=== PATIENT | female | born 1970 | race Caucasian/White ===

== ENCOUNTER → 2017-11-06 | Outpatient (CLI) | payer BC ==
[~2017-11-06] VITALS: Ht 162.6 cm; Wt 122.0 kg
[~2017-11-06] MED LIST: MOBIC15 MG PO; OXYCODONE HCL 55 MG PO; PHENTERMINE H37.5 M1 PO; PROTONIX40 M1 PO; ROXICODONE5 MG PO; XANAX 0.5 MG0.5 MG PO
--- NOTE | ~2017-11-06 | HPC ---
[facility] [place] [address] PAIN MANAGEMENT CONSULTATION Name: HARDEEP SANTIAGO Room #: REG [facility]..#: [id number] Admission: 11/06/17 Attend Phys: Layo Mckenna DO Discharge: Date of : 70 Report #: [id number] THIS REPORT FOR: //name// CC: Layo Lowery MD DATE OF SERVICE: 11/06/2017 REFERRING PHYSICIAN: Marilyn Lowery MD CHIEF COMPLAINT: Low back pain, right buttock and posterolateral thigh pain. HISTORY OF PRESENT ILLNESS: As you know, the patient is a 47-year-old female who has been referred to our service with ongoing low back and right lower extremity pain. She indicates pain is constant, aching, burning, shooting, sharp and stabbing, places current pain score 7/10, indicates pain is exacerbated with standing, sitting, walking, improves with oxycodone therapy, CBD oils apparently helps to some degree. She sought evaluation through her primary care physician, Dr. Marilyn Lowery who indicated the patient should be seen by pain management due to history of back surgery. She has been complaining of ongoing back pain for nearly 3 months. She is taking oxycodone for her pain as well as made some changes in her normal activities in hopes of improving symptoms. She has been referred to our clinic to discuss ongoing pain that has been present since 2001. She is denying any injury or trauma. Pain today is rated at 7/10, daily average at 7-8/10, worst pain has been 10+/10. PAST MEDICAL HISTORY: 1. Anemia. 2. Chronic stomach problems. 3. Emotional problems. 4. Degenerative joint disease. 5. Osteoarthritis. PAST SURGICAL HISTORY: 1. Appendectomy. 2. Lap band surgery. 3. Herniorrhaphy. 4. Repeat herniorrhaphy. 5. Back surgeries times 7, beginning 2012, continuing through mid 2012. SOCIAL HISTORY: The patient denies tobacco, alcohol, IV or illicit drug use. 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 She is working, not receiving workmen's compensation or is she trying to obtain disability benefits. She is not in litigation in regards to her pain. [facility] [address] [place] [address] PAIN MANAGEMENT CONSULTATION Name: JACKHARDEEP Room #: REG [facility].#: [id number] Admission: 11/06/17 Attend Phys: Layo Mckenna DO Discharge: Date of : 70 Report #: [id number] REVIEW OF SYSTEMS: Positive for weight gain, decrease in appetite, fatigue, weakness, headaches corrective eyewear, double vision, chronic sinus problems, rhinitis, sore throat with voice changes, shortness of breath with walking or lying flat, loss of appetite, bowel movement issues, constipation, rectal bleeding, peptic ulcer disease, nocturia, sexual difficulty, varicose veins, recurrent headaches, numbness and tingling sensations, memory loss or confusion, nervousness, depression, insomnia, heat and cold intolerance, slow to heal after cuts, bleeding and bruising tendencies and anemia. All other review of systems negative per 12-point review of systems other than those listed in history of present illness. PAIN IMPACT SCORE: 59/70 indicating severe, near complete interference of daily activities secondary to pain. ALLERGIES: MORPHINE, CODEINE, and LATEX. CURRENT MEDICATIONS: Oxycodone 5 mg 3 times a day, phentermine 37.5 mg once a day, Meloxicam 15 mg once a day, pantoprazole 40 mg once a day, and alprazolam 0.5 mg twice a day. IMAGING: No imaging available. OPIOID ABUSE POTENTIAL: Two indicating a low risk. PHYSICAL EXAMINATION: VITAL SIGNS: Blood pressure 153/99, pulse 102, respiratory rate 18 and unlabored, the patient is 91% on room air, height 5 feet 4 inches tall, weight 269 pounds, and BMI calculated 46.2. GENERAL: Well-developed, well-nourished, well-hydrated, severely morbidly obese 47-year-old female, appears her stated age. She is placing pain score today 7/10. HEENT: Normocephalic, atraumatic. Pupils are equal, round, and reactive to light. Extraocular muscles are intact. Sclerae are nonicteric without injection. NEUROLOGIC: Cranial nerves 2-12 are grossly intact. Speech is fluent. The patient deemed a fair historian. LUNGS: Clear. No wheeze, rhonchi, or rales. CARDIOVASCULAR: Regular. No appreciable gallop, no rub. ABDOMEN: Soft, severely obese, normoactive bowel sounds. EXTREMITIES: Show no clubbing, no cyanosis, and no edema. MUSCULOSKELETAL: Seated straight leg raising negative. Supine straight leg raising negative. Devonte's test negative. Modified Gaenslen's positive for axial low back pain. Severe restriction of motion secondary to multiple surgeries. There are well-healed surgical scars in the area. Ankle clonus negative. Babinski is negative. Muscle bulk and tone symmetrical in lower extremities. [facility] [address] [place] [address] PAIN MANAGEMENT CONSULTATION Name: HARDEEP SANTIAGO Room #: REG [facility]#: [id number] Admission: 11/06/17 Attend Phys: Layo Mckenna DO Discharge: Date of : 70 Report #: [id number] ASSESSMENT: 1. 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 3. Chronic back pain. 4. Opioid dependency. 5. Chronic intractable pain. PLAN: 1. The patient has been referred to our service by her primary care physician for evaluation. It does appear the patient is taking oxycodone without complication. She is taking no more than 3 oxycodone 5 mg a day and this is providing her benefit. Apparently, she was taking significantly higher number of medications from a dosing standpoint and has been weaned down to 5 mg 3 times a day. Due to concerns of the primary team about ongoing opioid therapy, she was referred to our clinic. Given the fact the patient had had 7 different lumbar spine surgeries, there are very few options she has available to treat ongoing symptoms. We discussed the following with the patient today. We discussed core strengthening and a significant effort at weight loss, this would be the cornerstone of treatment. The patient was advised that we would have to have the patient either managed medically by a professional weight loss physician or possibly looking towards bariatric intervention from a surgical standpoint. The patient's weight is contributing significantly to her ongoing back pain issues. Her BMI today 46 well above a female her height and age. She needs to make a concerted effort of making changes in diet and exercise programs. I do understand the patient has difficulty with some exercise issues, but this should not preclude her from reducing her caloric intake to begin a concerted effort at weight loss. We discussed medication management, we would be willing will continue oxycodone at 5 mg 3 times a day, assuming she is appropriate with use of the therapy. At this point, interventional treatments I do not think would be beneficial except for the possibility of a spinal cord stimulator. This could be helpful in alleviating symptoms the patient is experiencing and improve overall pain, she will consider this option. 2. I have agreed to provide the patient with oxycodone 5 mg dose 1 tab p.o. t.i.d., I have given the patient #90 tablets, no refills. We have signed an opioid contract with the patient today that indicates that she will be appropriate with medication, she will not overuse her medication, she will not have lost or stolen prescriptions and that she will submit to testing at any time we deem necessary. The patient to review the opioid contract today and signed in good jak, it was countersigned by myself and the witnessing nurse. 3. The patient will return to our clinic in one month. At that time, we will review the medication efficacy. We will also discuss point #1, the physical therapy and weight loss that will be necessary as well as point #3 in regards to the spinal cord stimulator. 4. The patient will be returning to our clinic in 1 month, [place] [address] PAIN MANAGEMENT CONSULTATION Name: HARDEEP SANTIAGO Room #: REG CLI M.Cruz#: [id number] Admission: 11/06/17 Attend Phys: Layo Mckenna DO Discharge: Date of : 70 Report #: [id number] apprised of her response to treatment. Again, we wish to thank you for the opportunity to see the patient in consultation. Once she is stable, we will be returning her care to your capable hands. Indicated guideline states that if the patient is not stable, they are to see pain management, adjustments to be made and then return to their PCP. <ELECTRONICALLY SIGNED> By: Layo Mckenna DO 11/20/17 0935 [id number] Layo Mckenna DO /nt
[2017-11-06 09:04] VITALS: BP 153/99
== END ==
LOC: PAIN 07:03
DX: M54.5 Low back pain (principal); G89.4 Chronic pain syndrome; F11.20 Opioid dependence, uncomplicated

== ENCOUNTER → 2018-01-08 | Outpatient (CLI) | payer BC ==
[~2018-01-08] VITALS: Ht 162.6 cm; Wt 115.1 kg
--- NOTE | ~2018-01-08 | HPC ---
[facility] [address] PAIN MANAGEMENT CONSULTATION Name: HARDEEP SANTIAGO Room #: REG [facility].#: [id number] Admission: 01/08/18 Attend Phys: Layo Mckenna DO Discharge: Date of : 70 Report #: [id number] THIS REPORT FOR: //name// CC: Layo Lowery MD DATE OF SERVICE: 01/08/2018 REFERRING PHYSICIAN: Marilyn Lowery MD CHIEF COMPLAINT: Low back pain, right buttock and posterolateral thigh pain. HISTORY OF PRESENT ILLNESS: As you know, the patient is a 47-year-old morbidly obese female who was referred to our service for low back pain, right buttock and posterolateral thigh pain. She also suffers from intermittent left hip pain. The patient was seen in our clinic per the request of her primary care team on 11/06/2017. At that point, we chose to reduce the patient's opioid medications to a more appropriate dosing regimen of 5 mg 3 times a day of oxycodone, this provides benefit without side effects. She has been continued on that medication, returning today stating that her pain is of no greater than 6/10, she states the combination of her new exercise program for which she is increasing her walking and some light weightlifting along with medications is improving pain. She requests refill on medications at current dosing. She states her pain is exacerbated with sitting, standing, walking, improves with medications, cold compresses and exercise program. She indicates that she continues to lose weight, she is now at 253.8 pounds down from 267 last month. She returns for refill on medications. ALLERGIES: MORPHINE, CODEINE, and LATEX. CURRENT MEDICATIONS: Oxycodone 5 mg every 8 hours p.r.n. for pain, phentermine 37.5 mg once a day, Meloxicam 15 mg once a day, pantoprazole 40 mg per day, and alprazolam 0.5 mg twice a day. SOCIAL HISTORY: The patient continues to work. 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 She is not receiving workmen's compensation. She does not participate in tobacco, alcohol or IV or illicit drug use. IMAGING: There is no new imaging available. PHYSICAL EXAMINATION: VITAL SIGNS: Blood pressure 150/78, pulse 91, respiratory rate 16 and unlabored, the patient is 100% on room air, height 5 feet 4 inches tall, weight 253.8 pounds, BMI calculated 43.5. GENERAL: Well-developed, well-nourished, well-hydrated, class [place] [address] PAIN MANAGEMENT CONSULTATION Name: JACKHARDEEP [facility] [id number] Admission: 01/08/18 Attend Phys: Layo Mckenna DO Discharge: Date of : 70 Report #: [id number] 47-year-old female, appearing stated age, placing current pain score at 6/10. HEENT: Normocephalic, atraumatic. Pupils are equal, round, and reactive to light. EXTREMITIES: Show no clubbing, no cyanosis, and no edema. MUSCULOSKELETAL: Seated straight leg raising negative. Supine straight leg raising mildly positive. Devonte's test negative. Modified Gaenslen's positive for axial back pain. Ankle clonus negative. Babinski is negative. ASSESSMENT: 1. Failed lumbar spine surgery. 2. Chronic low back pain. 3. Opioid dependency. 4. Chronic intractable pain. PLAN: 1. The patient returns today in followup visit indicating continued weight loss, increase exercise activity. She is down from 267 pounds to 253.8 pounds. We applauded the patient for the continued weight loss and participation in exercise activities, I believe this will be one of the major sources of pain improvement as she begins to lose greater amounts of weight. We have encouraged the patient to continue this activity and have offered the patient the opportunity to be referred to either a medically managed weight loss program or for more physical therapy training to lose weight more rapidly. At present, the patient feels she is doing well and wishes to continue current therapy, she is continuing to take phentermine provided by her PCP. 2. The patient was provided a refill prescription on oxycodone 5 mg dose 1 tab p.o. t.i.d., I have given the patient #90 tablets. She appears to be utilizing the medication appropriately. She states that the medication provides benefit without side effects. We recommend she continue the medication for the next month. 3. We will see the patient back in followup visit 30 days for the next prescription of oxycodone and to discuss other treatment options. <ELECTRONICALLY SIGNED> By: Layo Mckenna DO 01/09/18 0804 0835 [id number] Layo Mckenna DO /nt
[2018-01-08 08:10] VITALS: BP 150/78
== END ==
LOC: PAIN 01-01 06:38
DX: M54.5 Low back pain (principal); G89.4 Chronic pain syndrome; F11.20 Opioid dependence, uncomplicated

== ENCOUNTER → 2018-02-05 | Outpatient (CLI) | payer BC ==
[~2018-02-05] VITALS: Ht 162.6 cm; Wt 116.8 kg
[~2018-02-05] MED LIST changes: +ROXICODONE5 M2 PO
--- NOTE | ~2018-02-05 | HPC ---
[facility] [place] [address] PAIN MANAGEMENT CONSULTATION Name: HARDEEP SANTIAGO [id number] Admission: 02/05/18 Attend Phys: Layo Mckenna DO Discharge: Date of : 70 Report #: [id number] THIS REPORT FOR: //name// CC: Layo Lowery MD DATE OF SERVICE: 02/05/2018 REFERRING PHYSICIAN: Marilyn Lowery M.D. CHIEF COMPLAINT: Low back pain, right buttock and posterolateral thigh pain. HISTORY OF PRESENT ILLNESS: As you know, the patient is a morbidly obese 47-year-old female referred to our service for chronic low back pain, right buttock and posterolateral thigh pain. She states she suffers from intermittent left hip pain, likely due to her body habitus. She has been stabilized on a dose of oxycodone 5 mg 3 times a day, which is working well for pain control. The patient is reporting pain levels no greater than 6/10 and this is with increased activity. She does provide information today about recent changes in her menstruation for which she is following up with her PCP. She does not apparently at this time have an PEDIATRICS PHYSICIAN. The patient states she is having 2 menstrual periods per month or greater and this is causing greater and greater disability and that she is unable to participate in her activities of daily living. She is up 4 pounds from our visit 1 month ago. It is imperative that the patient began to lose weight as her symptoms are directly related to her excessive body size. This is contributing significantly to ongoing pain issues. Without weight loss, medication therapy is going to be met with failure. She needs to look into her gynecological issues as quickly as possible. ALLERGIES: MORPHINE, CODEINE and LATEX. CURRENT MEDICATIONS: Oxycodone 5 mg every 8 hours p.r.n. for pain, phentermine 37.5 mg once a day, meloxicam 15 mg per day, pantoprazole 40 mg per day and alprazolam 0.5 mg twice a day. SOCIAL HISTORY: The patient continues to work. 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 She is working, not receiving workmen's compensation nor is she trying to obtain disability benefits. Unaccompanied today. She denies tobacco, alcohol or IV or illicit drug use. IMAGING DATA: No new imaging available. PHYSICAL EXAMINATION: GENERAL: Well-developed, well-nourished, well-hydrated, class 3 morbidly obese 47-year-old female appearing stated age. She [place] [address] PAIN MANAGEMENT CONSULTATION Name: HARDEEP SANTIAGO Room #: REG [facility].#: [id number] Admission: 02/05/18 Attend Phys: Layo Mckenna DO Discharge: Date of : 70 Report #: [id number] . HEENT: Normocephalic and atraumatic. Pupils equal, round and reactive to light. Extraocular muscles are intact. Speech fluent. EXTREMITIES: Show no clubbing and no cyanosis. There is 1+ nonpitting lower extremity edema. MUSCULOSKELETAL: Seated straight leg raising negative. Supine straight leg raising mildly positive. Devonte's test is positive mildly on the left. Modified Gaenslen's positive for axial low back pain. Ankle clonus negative. Babinski is negative. ASSESSMENT: 1. Failed lumbar spine surgery. 2. Chronic low back pain. 3. Opioid dependency. 4. Morbid obesity. 5. Chronic intractable pain. PLAN: 1. The patient returns today in followup visit up 4 pounds from last month. We have discussed at length today with the patient her need to reduce her overall weight. This is contributing significantly to the patient's ongoing pain issues. The patient indicates that she has been unable to participate in daily activities, walking and exercise due to repeating menstrual issues. She has had 2-2-1/2 menstrual periods per month over the past couple of months. She states she is being evaluated by primary care but has not been seen by Gynecology. We recommend strongly a gynecology referral for the patient. We will defer to the primary team to provide this. I do feel that further evaluation will be necessary given the patient's age and the frequency of her cycles. This could potentially be a typical finding for this individual given her age of 47 and her morbid obesity, but there is also possibility pathology may exist and needs further evaluation. 2. The patient and I discussed at length the need for reduction in weight. We have discussed with the patient diet changes as well as exercise programs in the combination therein. We have offered the patient a referral to bariatric counseling with weight control via diet and exercise as well as a potential gastric surgery. The patient wishes to consider this option. She does not wish the referral at this point. 3. The patient was provided prescription of oxycodone 5 mg dose 1 tab p.o. t.i.d., not to be taken more than 3 times a day. She was given #90 tablets. This equals 22.5 mg morphine equivalents a day well under CDC's recommended guidelines. She has requested refill on the medication today. Given the improvement in symptoms she has noted with this medication, we recommend a 3-month prescription to be provided at this visit. 4. The patient was provided prescription of oxycodone 5 mg dose 1 tab p.o. t.i.d. I have given the patient #90 tablets and 2 refills to be released today, 4 weeks from today and 8 weeks from today, 3 months' worth of medication. [facility] [address] [place] [address] PAIN MANAGEMENT CONSULTATION Name: HARDEEP SANTIAGO SADAF Room #: REG [facility].#: [id number] Admission: 02/05/18 Attend Phys: Layo Mckenna DO Discharge: Date of : 70 Report #: [id number] 5. We will see the patient back in followup visit in 3 months. At that time, we are going to discuss weight loss programs that will be necessary as part of the treatment option. It is her weight that is contributing significantly to her ongoing low back issues. Without reduction in weight, she will not see improvement in symptoms. We will discuss this again at followup visit. By: [id number] Layo Mckenna DO /nt
[2018-02-05 08:02] VITALS: BP 156/101
== END ==
LOC: PAIN 06:34
DX: M54.5 Low back pain (principal); G89.4 Chronic pain syndrome; E66.01 Morbid (severe) obesity due to excess calories; F11.20 Opioid dependence, uncomplicated

== ENCOUNTER → 2018-05-14 | Outpatient (CLI) | payer BC ==
[~2018-05-14] VITALS: Ht 165.1 cm; Wt 119.3 kg
[~2018-05-14] MED LIST changes: +FERROUS GLUCON324 M3 PO
--- NOTE | ~2018-05-14 | HPC ---
[facility] [place] [address] PAIN MANAGEMENT CONSULTATION Name: HARDEEP SANTIAGO [id number] Admission: 05/14/18 Attend Phys: Layo Mckenna DO Discharge: Date of : 70 Report #: [id number] THIS REPORT FOR: //name// CC: Layo Lowery MD DATE OF SERVICE: 05/14/2018 REFERRING PHYSICIAN: Marilyn Lowery M.D. CHIEF COMPLAINT: Low back pain, right buttock and posterolateral thigh pain. HISTORY OF PRESENT ILLNESS: As you know, the patient is morbidly obese 47-year-old female referred to our service for chronic low back pain, right buttock and posterolateral thigh pain. She suffers from intermittent left hip pain as well. This is likely due to osteoarthritic changes and her body habitus. She returns today requesting a refill of oxycodone 5 mg 3 times a day. She does provide information that she is having more difficulty with constipation. She believes this is a combination of the oxycodone along with iron supplementation. She states that her bowel movements now are every 4-10 days, which is quite concerning. She indicates pain level today of around 6/10. She states that her pain is aching and sore in sensation, exacerbated with standing, walking and sitting, improves with medications, heat and cold compresses. She is also describing menstrual cycles happening every 2 weeks. She is quite concerned about the excessive bleeding at both these issues, but has yet to undergo full workup by Gynecology. She returns to discuss these issues with us today. ALLERGIES: MORPHINE, CODEINE AND LATEX. CURRENT MEDICATIONS: Oxycodone 5 mg every 8 hours p.r.n. for pain, phentermine 37.5 mg once a day, meloxicam 15 mg once a day, pantoprazole 40 mg per day, alprazolam 0.5 mg twice a day and iron supplementation daily. SOCIAL HISTORY: The patient continues to work. 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 She is working, not receiving workmen's compensation nor is she trying to obtain disability benefits. She is unaccompanied today. IMAGING: No new imaging available. PHYSICAL EXAMINATION: VITAL SIGNS: Blood pressure 142/90, pulse 103, respiratory rate 16 and unlabored. The patient is 100% on room air. Height 5 feet 5 inches tall, weight 263.0 pounds and BMI calculated at 43.8. GENERAL: Well-developed, well-nourished, well-hydrated, class 3, [place] [address] PAIN MANAGEMENT CONSULTATION Name: HARDEEP SANTIAGO Room #: REG [facility].#: [id number] Admission: 05/14/18 Attend Phys: Layo Mckenna DO Discharge: Date of : 70 Report #: [id number] 47-year-old female appearing her stated age. She is placing pain score around 6/10. HEENT: Normocephalic, atraumatic. Pupils equal, round and reactive to light. Extraocular muscles are intact. Sclerae nonicteric, without injection. EXTREMITIES: Show no clubbing, no cyanosis. There is 1+ lower extremity nonpitting edema. MUSCULOSKELETAL: Seated straight leg raising negative. Supine straight leg raising remains mildly positive. Devonte's test is positive left, negative right. Modified Gaenslen's is positive for axial low back pain. Ankle clonus negative. Babinski is negative. The patient has to utilize arms of the chairs to rise from a seated position. Pain is elicited with this maneuver. ASSESSMENT: 1. Failed lumbar spine surgery. 2. Chronic low back pain. 3. Opioid dependency. 4. Class 3 morbid obesity. 5. Menorrhagia. 6. Chronic intractable pain. 7. Complicated medication management. PLAN: 1. The patient has returned today in followup visit discussing concerns of multiple issues. We addressed each of those issues as much as we could today. We discussed constipation issues secondary to opioids and iron supplementation that in conjunction with lack of activities from a physical standpoint. We discussed ongoing gynecologic issues with excessive bleeding that occurs twice a month as well as ongoing back issues, status post failed lumbar spine surgery. The following was discussed with the patient today. 2. We discussed the continuation of opioid medication for which she is taking oxycodone 5 mg 3 times a day, a total of 15 mg oxycodone equating to approximately 25 morphine equivalents a day. This level of medications is well below the CDC's recommended guidelines of less than 90 morphine equivalents a day, but may be contributing significantly to the patient's ongoing constipation issues. The patient states that she would not be able to go about her activities of daily living without this medication. We cautioned the patient that she may be exacerbating her constipation with the opioids. We have given her some suggestions for lyzw-akq-bwhtfmr medications to assist with bowel regimen and have indicated that if she wished to come off the medication for approximately a week, she could determine if the oxycodone is the source of the patient's ongoing constipation issues. This is probably compounded by her iron supplementation, both of which show significant constipation issues as side effects. If she wishes to reduce the oxycodone, she would be able to determine how much of her constipation is exacerbated by that medication. 3. The patient was provided prescription of oxycodone 5 mg dose 1 tab p.o. t.i.d. I have given the patient #90, releases of today, 4 weeks from today, [address] [address] PAIN MANAGEMENT CONSULTATION Name: HARDEEP SANTIAGO Room #: REG [facility].#: [id number] Admission: 05/14/18 Attend Phys: Layo Mckenna DO Discharge: Date of : 70 Report #: [id number] weeks from today, 3 months' worth of medication. The patient was advised to take the medication as directed. She is not to call for early refills nor is she to take more than 3 tablets per day. 4. We reviewed the fact that opiate medications are being used to provide analgesia adequate to support activities of daily living, not attempting to achieve a specific pain score on the 0-10 Visual Analog Scale. The current opiate medications are providing sufficient analgesia to allow the patient to participate in activities of daily living. The patient is not exhibiting any aberrant behavior suggestive of drug diversion. The patient is not having any adverse reactions to medications. The patient is not suffering from daytime somnolence or mental acuity changes. The patient is managing opiate-induced constipation with appropriate sljy-uli-klhtuya agents and dietary considerations. The patient was counseled on concern for caution with operating a motor vehicle while using opiate medications. A physical exam was performed and the patient's functional status was evaluated. All patients with back pain were advised against the bed rest greater than 4 days and were advised to return to normal activities. Pain score assessment was noted and the treatment plan was reviewed with the patient. All current medications, both prescribed and OTC were reviewed and reconciled on the electronic medical record. Tobacco screening was accomplished and smoking cessation was advised when indicated. BMI was noted and diet/exercise modification was recommended for all patients following outside normal parameters. I reviewed with the patient today their responsibilities to safeguard prescription medications, reviewed their responsibility to utilize medications only as prescribed by the physician. They are to seek and receive pain medications only from 1 physician group ( [facility]). They are to use 1 pharmacy and keep the clinic informed if they change pharmacies. Their responsibilities include making followup visits in a timely fashion and to avoid abrupt discontinuation of medication usage. Their responsibilities further include bringing their medications (bottles from the pharmacy with residual pills) to the visit for possible confirmation of pill counts and the patient understands it is their responsibility to submit to random drug screens to ensure both that the medications prescribed are present, and that no other controlled substances are present. All prescriptions provided today were generated electronically. 5. The patient and I discussed at length today ongoing issues with fairly significant menstrual issues. She now is indicating that she is having her period twice a month. This in our estimation is not appropriate. She states she has excessive bleeding at each presentation and I believe this needs to be worked up further. We have advised the patient to look into gynecologic evaluation at last visit, given her family history of leiomyosarcoma. I recommended strongly the patient look into this issue as her lqtzx-s-otjfg menstrual periods do not correlate with premenopausal-type symptoms. In fact, [address] [address] PAIN MANAGEMENT CONSULTATION Name: JACKHARDEEP Room #: REG [facility] Joseph#: [id number] Admission: 05/14/18 Attend Phys: Layo Mckenna DO Discharge: Date of : 70 Report #: [id number] premenopausal symptoms are usually fairly erratic and irregular. They tend to be ever extending in their presentations, becoming less and less frequent. In this case, the patient's symptoms remain consistent every 2 weeks with excessive bleeding that I believe needs further workup. 6. The patient and I discussed at length the constipation issues. We did give the patient suggestions of uusg-vnp-idcujgy medications she can trial. We also recommend increasing physical activity. This will help the bowels work more efficiently, without the reduction of the confounding medication; a change in her diet and increasing activity. It will be difficult for the patient to maintain good and sufficient bowel regimen. We recommend strongly she make some adjustments in her diet, reduce offending agents if possible such as the iron and opioids, depending on which is the most problematic and beginning a physical activity program to lose weight, but also help with bowel function. 7. We will see the patient back in followup visit in 3 months to adjust medications as necessary. <ELECTRONICALLY SIGNED> By: Layo Mckenna DO 05/15/18 0821 [id number] Layo Mckenna DO /nt
[2018-05-14 08:24] VITALS: BP 142/90
== END ==
LOC: PAIN 06:53
DX: M54.5 Low back pain (principal); F11.20 Opioid dependence, uncomplicated; N92.0 Excessive and frequent menstruation with regular cycle; G89.4 Chronic pain syndrome; E66.01 Morbid (severe) obesity due to excess calories; Z79.899 Other long term (current) drug therapy

== ENCOUNTER → 2018-08-07 | Outpatient (CLI) | payer BC ==
[~2018-08-07] VITALS: Ht 165.1 cm; Wt 121.1 kg
[~2018-08-07] MED LIST changes: +SAXENDA3 MG/0.5 M SUBQ
[2018-08-07 08:13] VITALS: BP 157/74
--- NOTE | 2018-08-07 08:16 | NUR ---
Pain Clinic Assessment: 1. History of Osteoarthritis: YES History of Rheumatoid Arthritis: NO 2. Height: 5 ft. 5 in. 165.1 cm. Weight: 267.0 lb. oz. 121.111 kg. Patient's BMI: 44.4 3. Vital Signs: BP: 157/74 Pulse: 106 Resp: 18 Temp: 02 Sat: 99 ECG Mon: 4. Pain Intensity: 7 5. Fall Risk: Dizziness: N Needs help standing or walking: N Fallen in the last 3 months: N Fall risk comments: 6. Patient on Blood Thinner: None 7. History of Hypertension: N 8. Opioid Therapy greater than 6 weeks: Y Opiate Contract Signed: 11/06/17 9. Risk Assessment Tool Provided: 2 LOW 10. Functional Assessment Tool: 11. Recreational Drug Use: Never Drug Type: Tobacco Use: Never Smoker Tobacco Type: Amount or Packs/day: How Many Years: Alcohol Use: No Frequency: Quant:
--- NOTE | 2018-08-08 07:54 | HPC ---
[facility] [place] [address] PAIN MANAGEMENT CONSULTATION Name: HARDEEP SANTIAGO Room #: REG [facility].#: [id number] Admission: 08/07/18 Attend Phys: Hina Wilkinson Discharge: Date of : 70 Report #: [id number] THIS REPORT FOR: //name// CC: Hina Wilkinson Marilyn Lowery DATE OF SERVICE: 08/07/2018 CHIEF COMPLAINT: Low back pain, right buttock and posterior lateral thigh pain. HISTORY OF PRESENT ILLNESS: This is a 48-year-old morbidly obese female that returns to the pain clinic today for her chronic low back pain and right leg pain for a refill of her current pain medications. She tells me today that her pain score is a 7/10, mostly in her back but also does complain of some right shoulder and left foot pain. She tells me that the oxycodone is helpful in relieving some of her pain, but also has been having continued vaginal bleeding, uterine cramps and tells us that this is also causing her to have back pain. The patient tells me her pain is worse with her menstrual cycle and her medications are helpful as well as heat. The patient would like a refill of her medications today. I spoke with the patient and she is hopeful for an increase of her medications. ALLERGIES: BEES, MORPHINE, CODEINE AND LATEX. CURRENT LIST OF MEDICATIONS: Saxenda subQ daily, oxycodone 5 mg every 8 hours, iron 324 mg daily, phentermine 37.5 mg daily, meloxicam 15 mg p.r.n., Protonix 40 mg daily, Xanax 0.5 mg twice a day, MiraLax daily. PQRS: 1. Has a history of osteoarthritis in her back. Denies rheumatoid arthritis. 2. Height is 5 feet 5 inches, weight is 267 pounds, BMI is 44.4. 3. Vital signs: Blood pressure 157/74, pulse is 106, respirations 18, oxygen sat is 99%. 4. Pain score of 7. 5. Fall risk. Denies dizziness, does not need help walking or standing, has not fallen in the last 3 months. 6. The patient is not on any blood thinners and denies hypertension medications. 7. Opioid therapy is greater than 6 weeks; therefore, an opioid signed contract is on the chart. 8. Her risk assessment tool is low. Her functional assessment is 62/70. 9. Recreational drug use, the patient denies. She is not a smoker and does not drink alcohol. 10. We did check prescription monitoring systems and the patient is filling appropriately with her medications and is doing a few days for her oxycodone. There is not a urine drug screen on the chart. Therefore, we will collect a [facility] [address] [place] [address] PAIN MANAGEMENT CONSULTATION Name: JACKHARDEEP SADAF Room #: REG CL Opal#: [id number] Admission: 08/07/18 Attend Phys: Hina Wilkinson Discharge: Date of : 70 Report #: [id number] buccal swab today on the patient. PHYSICAL EXAMINATION: GENERAL: Well-developed, well-nourished, well-hydrated, class 3, morbidly obese 48-year-old female, appears her stated age, placing her pain score around 7/10. HEENT: Normocephalic, atraumatic. Pupils equal, round and reactive to light. Extraocular muscles are intact. EXTREMITIES: No clubbing, no cyanosis. Slight edema in her lower extremities. MUSCULOSKELETAL: The patient complains of low back pain. The patient does utilize the arms of the chairs to rise from seated to standing position, this does cause pain. The patient walks with an antalgic gait. ASSESSMENT: 1. Failed lumbar spine surgery. 2. Chronic low back pain. 3. Opioid dependency. 4. Class 3 morbid obesity. 5. Menorrhagia. 6. Chronic intractable pain. 7. Chronic complicated medical management under terms of written opioid agreement. We reviewed the fact that opiate medications are being used to provide analgesia adequate to support activities of daily living, not attempting to achieve a specific pain score on the 0-10 Visual Analog Scale. The current opiate medications are providing sufficient analgesia to allow the patient to participate in activities of daily living. The patient is not exhibiting any aberrant behavior suggestive of drug diversion. The patient is not having any adverse reactions to medications. The patient is not suffering from daytime somnolence or mental acuity changes. The patient is managing opiate-induced constipation with appropriate djmo-wbx-ektlapz agents and dietary considerations. The patient was counseled on concern for caution with operating a motor vehicle while using opiate medications. A physical exam was performed and the patient's functional status was evaluated. All patients with back pain were advised against the bed rest greater than 4 days and were advised to return to normal activities. Pain score assessment was noted and the treatment plan was reviewed with the patient. All current medications, both prescribed and OTC were reviewed and reconciled on the electronic medical record. Tobacco screening was accomplished and smoking cessation was advised when indicated. BMI was noted and diet/exercise modification was recommended for all patients following outside normal parameters. I reviewed with the patient today their responsibilities to safeguard prescription medications, reviewed their responsibility to utilize medications [address] [address] PAIN MANAGEMENT CONSULTATION Name: HARDEEP SANTIAGO Room #: REG [facility]#: [id number] Admission: 08/07/18 Attend Phys: Hina Wilkinson Discharge: Date of : 70 Report #: [id number] only as prescribed by the physician. They are to seek and receive pain medications only from 1 physician group ( [facility]). They are to use 1 pharmacy and keep the clinic informed if they change pharmacies. Their responsibilities include making followup visits in a timely fashion and to avoid abrupt discontinuation of medication usage. Their responsibilities further include bringing their medications (bottles from the pharmacy with residual pills) to the visit for possible confirmation of pill counts and the patient understands it is their responsibility to submit to random drug screens to ensure both that the medications prescribed are present, and that no other controlled substances are present. All prescriptions provided today were generated electronically. PLAN: 1. The patient returns to the pain clinic today for followup discussion regarding medication management. The patient wished to increase her pain medicines telling me that she has increased back pain. I questioned the patient regarding her last visit if she had seen a inspector of dredging regarding her continued menstrual cramping and periods, the patient tells me no. She says that she is having severe cramps today with increased back pain. I questioned her regarding taking her meloxicam. She tells me that she does not take that, did not think that that would help her periods. I did stress to her that nonsteroidals are good for menstrual pains. I encouraged her strongly to seek a inspector of dredging to rule out any issues, cancerous issues, fibroid issues, etc. regarding her continual menstrual bleeding. The patient tells me that she has had many doctors' appointments and was unable to do that. I again strongly encouraged her to make an appointment as soon as possible. We encouraged her to do this 3 months ago. She tells me she is seeing her primary next week. I encouraged her at least talk to her about it, maybe she can order some tests for the patient. The patient is agreeable with this. 2. We discussed her continuation of opioid medications. She is taking oxycodone 5 mg 3 times a day. This is approximately 25 morphine mEq a day, which has been helping in controlling some of the patient's low back pain. I told her we will not be increasing this medication today. I encouraged her to take her meloxicam as previously discussed for her back pain and not narcotics. The patient has told me that she has been taking MiraLax and slow movement tea that has helped her constipation and has not been having a problem with that any longer as long as she takes the medications refills. 3. Refills on the medication today of oxycodone 5 mg, #90, release today 4 week and 8 week were given to the patient as well as a buccal drug screen. The patient will return in 3 months' time. At that time, requested that she have her gynecological visit done by that. The patient is agreeable with this plan of care. The patient seen in collaboration with Dr. Layo Mckenna. <ELECTRONICALLY SIGNED> By: Hina Wilkinson 08/08/18 [id number] Hina Wilkinson /rafael
== END ==
LOC: PAIN 07:51
DX: M54.5 Low back pain (principal); G89.4 Chronic pain syndrome; F11.20 Opioid dependence, uncomplicated; N92.0 Excessive and frequent menstruation with regular cycle; E66.01 Morbid (severe) obesity due to excess calories; Z68.41 Body mass index [BMI] 40.0-44.9, adult; Z79.899 Other long term (current) drug therapy

== ENCOUNTER → 2018-11-13 | Outpatient (CLI) | payer BC ==
[~2018-11-13] VITALS: Ht 165.1 cm; Wt 127.7 kg
[~2018-11-13] MED LIST changes: +CLARITIN10 MG PO; +DIFLUCAN150 MG PO
[2018-11-13 08:18] VITALS: BP 156/98
--- NOTE | 2018-11-13 08:28 | NUR ---
Pain Clinic Assessment: 1. History of Osteoarthritis: LEFT FOOT LEFT ANKLE SPINE History of Rheumatoid Arthritis: NO 2. Height: 5 ft. 5 in. 165.1 cm. Weight: 281.6 lb. oz. 127.733 kg. Patient's BMI: 46.9 3. Vital Signs: BP: 156/98 Pulse: 96 Resp: 16 Temp: 02 Sat: 100 ECG Mon: 4. Pain Intensity: 6-7,TODAY/AVG 5. Fall Risk: Dizziness: N Needs help standing or walking: N Fallen in the last 3 months: N Fall risk comments: 6. Patient on Blood Thinner: None 7. History of Hypertension: N 8. Opioid Therapy greater than 6 weeks: Y Opiate Contract Signed: 11/06/17 9. Risk Assessment Tool Provided: 2 LOW 10. Functional Assessment Tool: 11. Recreational Drug Use: Never Drug Type: Tobacco Use: Never Smoker Tobacco Type: Amount or Packs/day: How Many Years: Alcohol Use: No Frequency: Quant:
--- NOTE | 2018-11-19 07:42 | HPC ---
[facility] [place] [address] PAIN MANAGEMENT CONSULTATION Name: HARDEEP SANTIAGO [id number] Admission: 11/13/18 ������������������ Attend Phys: Layo Mckenna DO Discharge: ������������������ Date of : 70 Report #: [id number] THIS REPORT FOR: //name// CC: Layo Lowery MD DATE OF SERVICE: 11/13/2018 CHIEF COMPLAINT: Low back pain, right buttock and posterolateral thigh pain. HISTORY OF PRESENT ILLNESS: As you know, the patient is a class 3 morbidly obese 48-year-old female who returns today in followup visit with continued low back pain, right lower extremity pain with paresthesias. The patient states that she has gained weight of recent due to increasing depression and weather changes. She indicates pain in the back has intensified with this weight gain. She returns today in followup visit requesting refill of medications. She denies side effects to medication at this juncture. We have had discussions in the past with the patient in regards to controlling her weight as this is the major contributor to the patient's ongoing axial back pain and lower extremity symptoms. We also discussed the fact that long-term opioid management would not be possible given the political climate with opioids. She returns today stating that she is trying to get back into physical activity, trying to lose the weight, and is trying to reduce her reliance on medications, though this has been ineffective so far. She returns today requesting refill of medications at current dosing understanding ultimately these medications will need to be further adjusted. ALLERGIES: MORPHINE, CODEINE, LATEX. CURRENT MEDICATIONS: Claritin 10 mg once a day, Diflucan 150 mg p.r.n. yeast infections, oxycodone 5 mg 3 times a day p.r.n., Saxenda 3 mg/0.5 mL injectable per day, ferrous gluconate 324 mg once a day, phentermine 37.5 mg once a day, meloxicam 15 mg once a day, pantoprazole 40 mg once a day, alprazolam 0.5 mg b.i.d. p.r.n. SOCIAL HISTORY: The patient denies tobacco, alcohol, IV or illicit drug use. She is working, not receiving workmen's compensation, unaccompanied today. IMAGING: No new imaging available. PHYSICAL EXAMINATION: VITAL SIGNS: Blood pressure 156/98, pulse 96, respiratory rate 16 and unlabored. The patient is 100% on room air. Height 5 feet 5 inches tall, weight 281.6 pounds, BMI calculated 46.9. GENERAL: Well-developed, well-nourished, well-hydrated, class [place] [address] PAIN MANAGEMENT CONSULTATION Name: HARDEEP SANTIAGO Room #: REG CLI [facility].#: [id number] Admission: 11/13/18 ������������������ Attend Phys: Layo Mckenna DO Discharge: ������������������ Date of : 70 Report #: [id number] 48-year-old female appearing her stated age, placing current pain score around 6-7/10. HEENT: Normocephalic, atraumatic. Pupils equal, round, reactive to light. Extraocular muscles are intact. EXTREMITIES: Show no clubbing, no cyanosis, and no edema. MUSCULOSKELETAL: Lower extremity strength is symmetrical, deconditioning noted bilaterally. Strength is rated at 5/5. Muscle bulk is equal and symmetrical in comparing left lower extremity to right. Seated straight leg raising negative. Supine straight leg raising negative. Devonte's test negative. Modified Gaenslen's positive for axial low back pain. Well-healed surgical scars over the lumbar spine. There is palpatory tenderness over the paraspinal musculature. No spinous process tenderness. ASSESSMENT: 1. Failed lumbar spine surgery. 2. Class 3 morbid obesity. 3. Chronic low back pain. 4. Opioid dependency. 5. Complicated medication management. 6. Chronic intractable pain. PLAN: 1. The patient returns today in followup visit where we have discussed at length her need to adjust her weight. I understand that she has had a lap band procedure in the past and had lost a significant amount of weight, down to nearly 170 pounds. Apparently, they chose to remove the saline from the lap band and once this was completed, the port itself moved and is no longer useful. Unfortunately, only alternative the patient has at this point is to look towards a full gastric bypass and she wishes to avoid this if at all possible. We discussed making adjustments in her diet, also starting an exercise program. We recommend aqua therapy initially and water based exercise program, as she begins to lose weight and can bear more weight on a consistent basis, then move towards a more land based exercise program. This in conjunction with appropriate diet changes could significantly improve the patient's weight, which will secondarily improve the patient's axial back pain. The patient and I had at least a 20-minute conversation about this today, I recommend she follow up with her PCP for referrals for bariatric consultations. 2. The patient and I did discuss the opioid medication she is currently on. She is taking oxycodone 5 mg 3 times a day. She is stating no side effects to medication. She states without the medication her pain would be significantly more intense. She will remain on this medication at this time with the understanding that eventually these medications will be slowly phased out of the [place] market as they are not indicated for chronic axial back pain issues and most insurances are no longer going to be covering this medication. We will continue the patient on the medication at this time, but we will adjust once conditions [facility] [address] [place] [address] PAIN MANAGEMENT CONSULTATION Name: JACKHARDEEP [id number] Admission: 11/13/18 ������������������ Attend Phys: Layo Mckenna DO Discharge: ������������������ Date of : 70 Report #: [id number] require. We reviewed the fact that opiate medications are being used to provide analgesia adequate to support activities of daily living, not attempting to achieve a specific pain score on the 0-10 Visual Analog Scale. The current opiate medications are providing sufficient analgesia to allow the patient to participate in activities of daily living. The patient is not exhibiting any aberrant behavior suggestive of drug diversion. The patient is not having any adverse reactions to medications. The patient is not suffering from daytime somnolence or mental acuity changes. The patient is managing opiate-induced constipation with appropriate [id number]-sesqntf agents and dietary considerations. The patient was counseled on concern for caution with operating a motor vehicle while using opiate medications. A physical exam was performed and the patient's functional status was evaluated. All patients with back pain were advised against the bed rest greater than 4 days and were advised to return to normal activities. Pain score assessment was noted and the treatment plan was reviewed with the patient. All current medications, both prescribed and OTC were reviewed and reconciled on the electronic medical record. Tobacco screening was accomplished and smoking cessation was advised when indicated. BMI was noted and diet/exercise modification was recommended for all patients following outside normal parameters. I reviewed with the patient today their responsibilities to safeguard prescription medications, reviewed their responsibility to utilize medications only as prescribed by the physician. They are to seek and receive pain medications only from 1 physician group ( [facility]). They are to use 1 pharmacy and keep the clinic informed if they change pharmacies. Their responsibilities include making followup visits in a timely fashion and to avoid abrupt discontinuation of medication usage. Their responsibilities further include bringing their medications (bottles from the pharmacy with residual pills) to the visit for possible confirmation of pill counts and the patient understands it is their responsibility to submit to random drug screens to ensure both that the medications prescribed are present, and that no other controlled substances are present. All prescriptions provided today were generated electronically. 3. The patient was provided prescription of oxycodone 5 mg dose 1 tab p.o. t.i.d., given the patient #90 tablets, releasing today, 4 weeks from today, 8 weeks from today, 3 months' worth of medication. We will see the patient back in followup visit for refill on medications assuming these will be able to be continued. 4. We will see the patient back in followup visit in 3 months. Hopefully, by [address] [address] PAIN MANAGEMENT CONSULTATION Name: HARDEEP SANTIAGO Room #: REG [facility] Joseph#: [id number] Admission: 11/13/18 ������������������ Attend Phys: Layo Mckenna DO Discharge: ������������������ Date of : 70 Report #: [id number] that time, she will have had the discussion with her PCP in regards to Bariatric consultation and Nutrition consultations. ��������������������������������������������� <ELECTRONICALLY SIGNED> ���������������������������������������� By: Layo Mckenna DO ��������������������������������������������� 11/19/18 0742 [id number] Layo Mckenna DO /nt
== END ==
LOC: PAIN 07:04
DX: M96.1 Postlaminectomy syndrome, not elsewhere classified (principal); G89.4 Chronic pain syndrome; F11.20 Opioid dependence, uncomplicated; M54.5 Low back pain; E66.01 Morbid (severe) obesity due to excess calories; Z88.8 Allergy status to other drugs, medicaments and biological substances; Z79.899 Other long term (current) drug therapy

== ENCOUNTER → 2019-05-14 | Outpatient (CLI) | payer BC ==
[~2019-05-14] VITALS: Ht 162.6 cm; Wt 132.5 kg
[~2019-05-14] MED LIST changes: +MUPIROCIN22 GM TOP; +OZEMPIC0.25 MG/0. SUBQ; +OZEMPIC1 MG/0.75 SUBQ; +TEMOVATE30 GM TOP
[2019-05-14 08:11] VITALS: BP 136/80
--- NOTE | 2019-05-14 08:20 | NUR ---
Pain Clinic Assessment: 1. History of Osteoarthritis: LEFT FOOT LEFT ANKLE SPINE History of Rheumatoid Arthritis: NO 2. Height: 5 ft. 4 in. 162.6 cm. Weight: 292.0 lb. oz. 132.451 kg. Patient's BMI: 50.1 3. Vital Signs: BP: 136/80 Pulse: 107 Resp: 16 Temp: 02 Sat: 97 ECG Mon: 4. Pain Intensity: 6-7 5. Fall Risk: Dizziness: N Needs help standing or walking: N Fallen in the last 3 months: N Fall risk comments: 6. Patient on Blood Thinner: None 7. History of Hypertension: N 8. Opioid Therapy greater than 6 weeks: Y Opiate Contract Signed: 11/06/17 9. Risk Assessment Tool Provided: MOD-7 10. Functional Assessment Tool: 11. Recreational Drug Use: Never Drug Type: Tobacco Use: Never Smoker Tobacco Type: Amount or Packs/day: How Many Years: Alcohol Use: No Frequency: Quant:
--- NOTE | 2019-05-27 07:57 | HPC ---
[facility] [place] [address] [address] PAIN MANAGEMENT CONSULTATION Name: HARDEEP SANTIAGO [facility]: [facility] [id number] Admission: 05/14/19 Attend Phys: Layo Mckenna DO Discharge: Date of : 70 Report #: [id number] THIS REPORT FOR: //name// CC: Layo Lowery HISTORY OF PRESENT ILLNESS: As you know patient is a 48-year-old class 3 morbidly obese female returning in followup visit for medication management. We are treating the lumbar radiculopathy involving low back and right lower extremity with paresthesias. The patient returns requesting refill on medications. Unfortunately, over the past 3 months since we have seen the patient, she has begun to increase weight, which has caused an exacerbation of symptoms. She is now placing pain at a level of 6-7/10. She returns today stating that she has suffered no new injury, no new trauma or any changes in medical issue since our last visit. She returns requesting refill on therapy at this time. ALLERGIES: MORPHINE, CODEINE, AND LATEX. CURRENT MEDICATIONS: Claritin, Diflucan p.r.n., oxycodone, Saxenda, ferrous gluconate, phentermine, meloxicam, pantoprazole, alprazolam. SOCIAL HISTORY: The patient denies tobacco, alcohol, IV or illicit drug use. She is working, not receiving workmen's compensation, unaccompanied today. IMAGING: No new imaging available. PHYSICAL EXAMINATION: VITAL SIGNS: Blood pressure 136/80, pulse is 107, respiratory rate 16 and unlabored. The patient is 97% on room air. Height 5 feet 4 inches tall, weight 292 pounds, BMI now calculated 50.1. GENERAL: Well-developed, well-nourished, well-hydrated class 3 severely morbidly obese 48-year-old female appearing her stated age, placing current pain score 6-7/10. HEENT: Normocephalic, atraumatic. Pupils equal, round, reactive to light. Extraocular muscles are intact. Sclerae nonicteric without injection. NEUROLOGIC: Cranial nerves 2-12 grossly intact. Speech is fluent. The patient deemed a good historian. EXTREMITIES: Show no clubbing, no cyanosis, no edema. MUSCULOSKELETAL: Lower extremity strength is equal and symmetrical, though deconditioning is noted again bilaterally. Strength rated at 5/5 against resistance. Muscle bulk is equal and symmetrical in lower extremities when comparing left to right. Devonte's test negative. Modified Gaenslen's positive for axial low back pain. Well-healed surgical scars over the lumbar spine. Seated straight leg raising negative. Supine straight leg raising negative. Gait antalgic. [address] [address] PAIN MANAGEMENT CONSULTATION Name: HARDEEP SANTIAGO [id number] Admission: 05/14/19 Attend Phys: Layo Mckenna DO Discharge: Date of : 70 Report #: [id number] ASSESSMENT: 1. Failed lumbar spine surgery. 2. Class 3 morbid obesity. 3. Chronic low back pain. 4. Opioid dependency. 5. Complicated medication management. 6. Chronic intractable pain. PLAN: 1. The patient returns today in followup visit requesting refill on medications. Unfortunately, we have seen an increase in the patient's weight since our last visit. BMI at last visit was calculated at 47.2, BMI is now calculated at 50.1. This excessive weight is going to be quite detrimental to the patient leading to ongoing pain issues that will not be resolved by medication management. If the patient does not address this weight issue quickly, this will continue to be a problem for the patient in long-term. Unfortunately, opioid medications and interventional treatments will not be able to remain an effective treatment option given her increasing weight. It is imperative that the patient do something about her weight quickly including a discussion with bariatric surgery. If the patient is unable to control her weight with diet and exercise, more aggressive treatment option will be necessary or we will have continued issues of ongoing pain and further destruction of the joints of the lower extremities. The patient has started a new medication with her PCP, but continues to have a poor diet. She will need to adjust her diet. We recommend at least a consultation with Nutrition would be recommended. We will defer to the primary team for treatment for her class 3 morbid obesity with increasing weight over the past 3 months. We reviewed the fact that opiate medications are being used to provide analgesia adequate to support activities of daily living, not attempting to achieve a specific pain score on the 0-10 Visual Analog Scale. The current opiate medications are providing sufficient analgesia to allow the patient to participate in activities of daily living. The patient is not exhibiting any aberrant behavior suggestive of drug diversion. The patient is not having any adverse reactions to medications. The patient is not suffering from daytime somnolence or mental acuity changes. The patient is managing opiate-induced constipation with appropriate slav-utt-wmtugzx agents and dietary considerations. The patient was counseled on concern for caution with operating a motor vehicle while using opiate medications. A physical exam was performed and the patient's functional status was evaluated. All patients with back pain were advised against the bed rest greater than 4 days and were advised to return to normal activities. Pain score assessment was noted and the treatment plan was reviewed with the patient. All current medications, both prescribed and OTC were reviewed and reconciled on the electronic medical record. Tobacco screening was accomplished and smoking [facility] [address] [place] [address] PAIN MANAGEMENT CONSULTATION Name: HARDEEP SANTIAGO Room #: REG [facility].#: [id number] Admission: 05/14/19 Attend Phys: Layo Mckenna DO Discharge: Date of : 70 Report #: [id number] cessation was advised when indicated. BMI was noted and diet/exercise modification was recommended for all patients following outside normal parameters. I reviewed with the patient today their responsibilities to safeguard prescription medications, reviewed their responsibility to utilize medications only as prescribed by the physician. They are to seek and receive pain medications only from 1 physician group ( [facility]). They are to use 1 pharmacy and keep the clinic informed if they change pharmacies. Their responsibilities include making followup visits in a timely fashion and to avoid abrupt discontinuation of medication usage. Their responsibilities further include bringing their medications (bottles from the pharmacy with residual pills) to the visit for possible confirmation of pill counts and the patient understands it is their responsibility to submit to random drug screens to ensure both that the medications prescribed are present, and that no other controlled substances are present. All prescriptions provided today were generated electronically. 2. The patient was provided prescription of oxycodone 5 mg dose. She was given #90 tablets. This equates to 15 mg of oxycodone a day or the equivalent of 22.5 morphine equivalents well below the CDC recommended no greater than 90 morphine equivalents. I have given the patient a prescription to release today, 4 weeks from today and 8 weeks from today, 3 months' worth of medication. The patient was advised to take the medication only as directed, not to take the medication prophylactically. 3. The patient and I had a long protracted discussion about nutrition today. I believe the patient needs further education on nutrition and we will defer to the primary team to refer for a nutrition consultation. It is my opinion that the patient is not making correct food choices and thus is exacerbating her ongoing weight issues. She is not exercising. She indicates her pain is intolerable, though pain scores do not reflect this issue nor does the patient's physiologic findings today. I believe there is a component of unwillingness to participate in exercise programs, though the patient will need to do so if she cannot adjust her diet appropriately. The patient will need assistance in this area and I recommend nutrition consultations and a concerted effort getting the patient involved in an exercise program. The patient will need to come to this realization on her own. We can request that she do these things, but if she is unwilling to make these changes, her weight will continue to increase and her pain will continue to be progressively worsened. We have offered to have the patient see a bariatric surgery, but she is uninterested in this opportunity. She will follow up with her PCP in regards to nutrition counseling. 4. We will see the patient back in followup visit in 3 months for medication management. <ELECTRONICALLY SIGNED> By: Layo Mckenna DO 05/27/19 [id number] Layo Mckenna DO /nt
== END ==
LOC: PAIN 06:52
DX: M54.5 Low back pain (principal); F11.20 Opioid dependence, uncomplicated; G89.4 Chronic pain syndrome; E66.01 Morbid (severe) obesity due to excess calories; Z91.040 Latex allergy status; Z88.8 Allergy status to other drugs, medicaments and biological substances

== ENCOUNTER → 2019-08-13 | Outpatient (CLI) | payer BC ==
[~2019-08-13] VITALS: Ht 162.6 cm; Wt 133.3 kg
[~2019-08-13] MED LIST changes: +CYMBALTA30 MG PO
[2019-08-13 14:24] VITALS: BP 152/91
--- NOTE | 2019-08-13 14:54 | NUR ---
Pain Clinic Assessment: 1. History of Osteoarthritis: LEFT FOOT LEFT ANKLE SPINE History of Rheumatoid Arthritis: NO 2. Height: 5 ft. 4 in. 162.6 cm. Weight: 293.8 lb. oz. 133.267 kg. Patient's BMI: 50.4 3. Vital Signs: BP: 152/91 Pulse: 85 Resp: 18 Temp: 02 Sat: 100 ECG Mon: 4. Pain Intensity: 5-6 5. Fall Risk: Dizziness: N Needs help standing or walking: N Fallen in the last 3 months: N Fall risk comments: 6. Patient on Blood Thinner: None 7. History of Hypertension: N 8. Opioid Therapy greater than 6 weeks: Y Opiate Contract Signed: 11/06/17 9. Risk Assessment Tool Provided: MOD-7 10. Functional Assessment Tool: 11. Recreational Drug Use: Never Drug Type: Tobacco Use: Never Smoker Tobacco Type: Amount or Packs/day: How Many Years: Alcohol Use: No Frequency: Quant:
--- NOTE | 2019-08-19 12:33 | HPC ---
Former[facility] [place] [address] PAIN MANAGEMENT CONSULTATION Name: HARDEEP SANTIAGO Room #: REG [facility].#: [id number] Admission: 08/13/19 Attend Phys: Layo Mckenna DO Discharge: Date of : 70 Report #: [id number] THIS REPORT FOR: //name// CC: Layo Lowery MD DATE OF SERVICE: 08/13/2019 REFERRING PHYSICIAN: Marilyn Lowery MD CHIEF COMPLAINT: Low back pain, right lower extremity pain. HISTORY OF PRESENT ILLNESS: As you know, the patient is a severely morbidly obese 49-year-old female who returns today in followup visit with continued low back pain, right lower extremity pain with paresthesias. She has been diagnosed with failed lumbar spine surgery leading to chronic low back pain along with class 3 morbid obesity contributing to overall symptoms. She returns today in followup visit stating that she has had difficulty with weight loss due to increased pain. Despite this increase in pain, The patient returns today in followup visit requesting similar refill of medications. She is denying side effects of sleepiness, disorientation, confusion, mental slowing with use of medication. She continues to take phentermine, but is noting no weight loss. Returning today in followup visit for medication management. ALLERGIES: MORPHINE, CODEINE, and LATEX. CURRENT MEDICATIONS: Duloxetine 90 mg p.o. at bedtime, oxycodone 5 mg every 8 hours p.r.n. for pain, Ozempic 0.5 mg subcutaneous twice a week, clobetasol 30 grams topical as necessary, loratadine 10 mg per day, Fluconazole 150 mg once a day, meloxicam 15 mg per day, pantoprazole 40 mg per day, alprazolam 0.5 mg b.i.d. SOCIAL HISTORY: The patient denies tobacco, alcohol, IV or illicit drug use. She is working unaccompanied today. IMAGING: No new imaging available. PHYSICAL EXAMINATION: VITAL SIGNS: Blood pressure 152/91, pulse 85, respiratory rate 18 and unlabored. The patient is 100% on room air. Height 5 feet 4 inches tall, weight 293.8 pounds, BMI calculated 50.4. GENERAL: Well-developed, well-nourished, well-hydrated, class 3 morbidly obese 49-year-old female appearing stated age, pain is rated today 5-6/10. HEENT: Normocephalic, atraumatic. Pupils equal, round, reactive to light. EXTREMITIES: Show no clubbing, no cyanosis, no edema. [address] [address] PAIN MANAGEMENT CONSULTATION Name: HARDEEP SANTIAGO Room #: REG [facility].#: [id number] Admission: 08/13/19 Attend Phys: Layo Mckenna DO Discharge: Date of : 70 Report #: [id number] MUSCULOSKELETAL: Lower extremity strength is symmetrical. There is noted deconditioning of the bilateral lower extremities, though muscle strength is rated at 5/5. Muscle bulk and tone equal and symmetrical in comparing left lower extremity to right. Seated straight leg raising negative. Supine straight leg raising negative. Well-healed surgical scars. ASSESSMENT: 1. Failed lumbar spine surgery. 2. Class 3 morbid obesity. 3. Chronic low back pain. 4. Opioid dependency. 5. Complicated medication management utilizing scheduled medications. PLAN: 1. The patient returns today in followup visit for medication management. She feels medications are working beneficially for pain control. She indicates that she is not able to go about exercise activities due to increased pain, which I believe is contributed significantly by her body habitus. The patient will need to begin an exercise program and a diet regimen to begin to see any weight loss. The patient and I discussed this at length today. I do feel that the patient will need assistance in weight loss and this can be handled through her PCP. We did discuss the possibility of having medically managed weight loss program be initiated or even looking towards some of the advertised programs on TV such as the Weight Watchers and/or [employer] Life. I believe the patient will need to make adjustments in her lifestyle if she wishes her pain to improve. 2. The patient and I discussed at length her failed back issues. We have agreed to continue the patient on the oxycodone 5 mg dose with the understanding that this is not a long-term treatment option. We will ultimately have to come off opioid medications as they are not indicated for long-term treatment. The patient is understanding, but does wish to continue medication at this time with the understanding that ultimately discontinuation of the therapy will be necessary. 3. We reviewed the fact that opiate medications are being used to provide analgesia adequate to support activities of daily living, not attempting to achieve a specific pain score on the 0-10 Visual Analog Scale. The current opiate medications are providing sufficient analgesia to allow the patient to participate in activities of daily living. The patient is not exhibiting any aberrant behavior suggestive of drug diversion. The patient is not having any adverse reactions to medications. The patient is not suffering from daytime somnolence or mental acuity changes. The patient is managing opiate-induced constipation with appropriate sevz-tyt-hyzdtkw agents and dietary considerations. The patient was counseled on concern for caution with operating a motor vehicle while using opiate medications. A physical exam was performed and the patient's functional status was evaluated. All patients with back pain were advised against the bed rest greater than 4 [facility] [address] [place] [address] PAIN MANAGEMENT CONSULTATION Name: HARDEEP SANTIAGO [id number] Admission: 08/13/19 Attend Phys: Layo Mckenna DO Discharge: Date of : 70 Report #: [id number] days and were advised to return to normal activities. Pain score assessment was noted and the treatment plan was reviewed with the patient. All current medications, both prescribed and OTC were reviewed and reconciled on the electronic medical record. Tobacco screening was accomplished and smoking cessation was advised when indicated. BMI was noted and diet/exercise modification was recommended for all patients following outside normal parameters. I reviewed with the patient today their responsibilities to safeguard prescription medications, reviewed their responsibility to utilize medications only as prescribed by the physician. They are to seek and receive pain medications only from 1 physician group ( [facility]). They are to use 1 pharmacy and keep the clinic informed if they change pharmacies. Their responsibilities include making followup visits in a timely fashion and to avoid abrupt discontinuation of medication usage. Their responsibilities further include bringing their medications (bottles from the pharmacy with residual pills) to the visit for possible confirmation of pill counts and the patient understands it is their responsibility to submit to random drug screens to ensure both that the medications prescribed are present, and that no other controlled substances are present. All prescriptions provided today were generated electronically. 4. The patient was provided prescription of oxycodone 5 mg dose 1 tab p.o. t.i.d. I have given the patient #90, releasing today, 4 weeks from today, 8 weeks from today, 3 months' worth of medication. 5. We will see the patient back in followup visit for medication adjustments. <ELECTRONICALLY SIGNED> By: Layo Mckenna DO 08/19/19 1233 [id number] Layo Mckenna DO /nt
== END ==
LOC: PAIN 06:55
DX: M54.5 Low back pain (principal); M79.604 Pain in right leg; G89.29 Other chronic pain; E66.01 Morbid (severe) obesity due to excess calories; F11.20 Opioid dependence, uncomplicated; Z88.5 Allergy status to narcotic agent; Z91.040 Latex allergy status; Z79.899 Other long term (current) drug therapy

== ENCOUNTER → 2019-11-11 | Outpatient (CLI) | payer BC ==
[~2019-11-11] VITALS: Ht 162.6 cm; Wt 134.0 kg
[~2019-11-11] MED LIST changes: +LEXAPRO20 MG PO
[2019-11-11 08:21] VITALS: BP 137/74
--- NOTE | 2019-11-11 08:24 | NUR ---
Pain Clinic Assessment: 1. History of Osteoarthritis: LEFT FOOT LEFT ANKLE SPINE History of Rheumatoid Arthritis: NO 2. Height: 5 ft. 4 in. 162.6 cm. Weight: 295.4 lb. oz. 133.993 kg. Patient's BMI: 50.7 3. Vital Signs: BP: 137/74 Pulse: 89 Resp: 14 Temp: 02 Sat: 100 ECG Mon: 4. Pain Intensity: 6 5. Fall Risk: Dizziness: N Needs help standing or walking: N Fallen in the last 3 months: N Fall risk comments: 6. Patient on Blood Thinner: None 7. History of Hypertension: N 8. Opioid Therapy greater than 6 weeks: Y Opiate Contract Signed: 11/06/17 9. Risk Assessment Tool Provided: MOD-7 10. Functional Assessment Tool: 11. Recreational Drug Use: Never Drug Type: Tobacco Use: Never Smoker Tobacco Type: Amount or Packs/day: How Many Years: Alcohol Use: No Frequency: Quant:
--- NOTE | 2019-11-11 15:25 | HPC ---
[facility] [address] [address] PAIN MANAGEMENT CONSULTATION Name: HARDEEP SANTIAGO Room #: REG [facility].#: [id number] Admission: 11/11/19 Attend Phys: Hina Wilkinson Discharge: Date of : 70 Report #: [id number] THIS REPORT FOR: cc: Marilyn Lowery MD, Rachel L. MD Hocker,Hina Martínez DATE OF SERVICE: 11/11/2019 CHIEF COMPLAINT: Low back pain, right lower extremity pain. HISTORY OF PRESENT ILLNESS: This is a very pleasant 49-year-old female who is morbidly obese, returning to the pain clinic today for refill of her medications that she uses to help treat her low back pain and right lower extremity pain and paresthesias. She is reporting her pain score today at 6/10. The majority of her pain is located in her lower back, mostly on the right side. The patient reports that she is taking 3 oxycodone tablets per day and finds if they are beneficial in controlling her pain. Since her previous visit, she has gained 2 pounds. She has been trying to lose weight and was taking phentermine, but is no longer taking that medication at this visit and not exercising like she had in the past. The patient denies any daytime somnolence or constipation as a result of her medications. ALLERGIES: MORPHINE, CODEINE, LATEX AND BEES. CURRENT LIST OF MEDICATIONS: Lexapro 20 mg, oxycodone 5 mg q.8 hours, Ozempic injection, Claritin, meloxicam, Protonix and Xanax. PQRS: 1. She has arthritic changes in her left foot and ankle as well as her spine. Denies any rheumatoid arthritis. 2. Height is 5 feet 4 inches, weight is 295, BMI is 50. Vital signs, 137/74, pulse is 89, respirations 14, oxygen sat is 100. 3. Pain score is 6/10. 4. Denies dizziness, does not need help walking or standing, has not fallen in the last 3 months. 5. The patient is not on any blood thinners, but does take medicine for hypertension. Opioid therapy is greater than 6 weeks; therefore, an opioid signed contract is on the chart. Risk assessment is moderate. Functional assessment is 62/70. 6. Recreational drug use, she denies. She is not a smoker and does not drink alcohol. According to the prescription monitoring system, the patient is due to fill her medications. She is filling it in a timely fashion and her morphine mEq according to the CDC guidelines is 22. There is a recent drug screen on the [address] [address] PAIN MANAGEMENT CONSULTATION Name: HARDEEP SANTIAGO Room #: REG [facility] Rene.Syl.#: [id number] Admission: 11/11/19 Attend Phys: Hina Wilkinson Discharge: Date of : 70 Report #: [id number] chart that is appropriate for her medications. PHYSICAL EXAMINATION: GENERAL: This is alert and orientated, class 3, morbidly obese 49-year-old female, rating her pain score today at 6/10. HEENT: Normocephalic, atraumatic. Pupils equal, round and reactive to light. EXTREMITIES: No clubbing, no cyanosis, no edema. MUSCULOSKELETAL: Seated straight leg raising is negative. Her lower extremity strength is symmetrical, but deconditioned. Strength is 5/5. Muscle tone and bulk is equal and symmetrical when compared to the left and the right. The patient has tenderness across her lumbosacral region, greater on the right lower back than the left. ASSESSMENT: 1. Failed lumbar spine surgery. 2. Class 3, morbidly obesity. 3. Chronic low back pain. 4. Opioid dependency. 5. Complicated medical management utilizing scheduled medications. We reviewed the fact that opiate medications are being used to provide analgesia adequate to support activities of daily living, not attempting to achieve a specific pain score on the 0-10 Visual Analog Scale. The current opiate medications are providing sufficient analgesia to allow the patient to participate in activities of daily living. The patient is not exhibiting any aberrant behavior suggestive of drug diversion. The patient is not having any adverse reactions to medications. The patient is not suffering from daytime somnolence or mental acuity changes. The patient is managing opiate-induced constipation with appropriate qiiz-foc-rnmskpg agents and dietary considerations. The patient was counseled on concern for caution with operating a motor vehicle while using opiate medications. PLAN: 1. We discussed treatment options with the patient today. The patient has gained 2 pounds since her last visit. We discussed her weight again today. She had been taking phentermine, but currently is not taking that. She is not exercising as she was due to the COVID virus. I encouraged her to be as active as she is possible during this time by walking or doing exercises on videos from the TV. 2. We discussed her medications. The patient is taking 5 mg 3 times a day. We will refill #90 for today for an 8-week supply. I encouraged her to take the lowest most effective dose. During this time, we are unsure if there will be a supply chain disruption and encouraged her to take lowest effective dose on days when she is at home to have a small supply available. We are hopeful that will not be any disruption in supply, but we are unsure about the future may hold. The patient verbalizes understanding. [facility] [place] [address] PAIN MANAGEMENT CONSULTATION Name: HARDEEP SANTIAGO Room #: REG CL Opal#: [id number] Admission: 11/11/19 Attend Phys: Hina Wilkinson Discharge: Date of : 70 Report #: [id number] 3. We explained to the patient as well. This will be the last month that we will give her written prescriptions. She needs to discuss with her [facility] that from now on, we will be sending electronic prescriptions as we are doing with other patients in our clinic. This is a standard of care now. The patient verbalizes understanding. She will discuss this with them or find a different pharmacy. 4. The patient is seen in collaboration with Dr. Layo Mckenna who will electronically send her scripts. The patient will return in followup in 3 months. <ELECTRONICALLY SIGNED> By: Hina Wilkinson 11/11/19 1525 [id number] [id number] Hina Wilkinson /nt
== END ==
LOC: PAIN 07:56
DX: M54.5 Low back pain (principal); M79.604 Pain in right leg; E66.9 Obesity, unspecified; F11.20 Opioid dependence, uncomplicated; Z88.5 Allergy status to narcotic agent; Z88.1 Allergy status to other antibiotic agents; Z88.8 Allergy status to other drugs, medicaments and biological substances

== ENCOUNTER → 2020-02-11 | Outpatient (CLI) | payer BC ==
[~2020-02-11] VITALS: Ht 162.6 cm; Wt 133.9 kg
[~2020-02-11] MED LIST changes: +COZAAR 50 MG TA50 M1 PO; +WELLBUTRIN 100100 MG PO
[2020-02-11 08:46] VITALS: BP 129/70
--- NOTE | 2020-02-11 08:57 | NUR ---
Pain Clinic Assessment: 1. History of Osteoarthritis: LEFT FOOT LEFT ANKLE SPINE History of Rheumatoid Arthritis: NO 2. Height: 5 ft. 4 in. 162.6 cm. Weight: 295.2 lb. oz. 133.902 kg. Patient's BMI: 50.6 3. Vital Signs: BP: 129/70 Pulse: 79 Resp: 18 Temp: 02 Sat: 100 ECG Mon: 4. Pain Intensity: 6 5. Fall Risk: Dizziness: N Needs help standing or walking: N Fallen in the last 3 months: N Fall risk comments: 6. Patient on Blood Thinner: None 7. History of Hypertension: Y 8. Opioid Therapy greater than 6 weeks: Y Opiate Contract Signed: 11/06/17 9. Risk Assessment Tool Provided: MOD-7 10. Functional Assessment Tool: 11. Recreational Drug Use: Never Drug Type: Tobacco Use: Never Smoker Tobacco Type: Amount or Packs/day: How Many Years: Alcohol Use: No Frequency: Quant:
--- NOTE | 2020-02-11 12:17 | HPC ---
[facility] [place] [address] PAIN MANAGEMENT CONSULTATION Name: HARDEEP SANTIAGO Room #: REG [facility] M..#: [id number] Admission: 02/11/20 Attend Phys: Hina Wilkinson Discharge: Date of : 70 Report #: [id number] THIS REPORT FOR: cc: Marilyn Lowery MD, Rachel L. MD Hocker, Amanda CNS ~ CC: Hina HOU DO DATE OF SERVICE: 02/11/2020 CHIEF COMPLAINT: Low back pain, right lower extremity pain. HISTORY OF PRESENT ILLNESS: This is a 49-year-old female who returns to the pain clinic today for refill of her medications. Today, she is reporting a pain score of 6/10, which is an average pain score for her. She states that it is in her lower back that radiates down her right leg as well as pain in her left foot and it is an aching soreness that is worse with sitting. She feels the medication as well as heat has been beneficial in controlling her pain. Today, she is reporting that she has started Wellbutrin. She has struggled with depression for years. Her primary care doctor has started with her Lexapro. She has been having some dizziness with his new medication, so she has decreased the dose in half and is hopeful that that will help reduce some of the dizziness while her body adjusted the medication. She states that she has moved into a new house and getting the new house setup has helped with some of her depression issues that she has something to look forward to but she is very hopeful of that this medication when she reaches its therapeutic dose will be beneficial for her. Today, she is requesting refills of her oxycodone. ALLERGIES: MORPHINE, CODEINE, LATEX. CURRENT LIST OF MEDICATIONS: Losartan, oxycodone 5 mg every 8 hours p.r.n., Lexapro, Ozempic, Temovate, Claritin, meloxicam, Protonix, Xanax and Wellbutrin 100 mg. PQRS: 1. She has osteoarthritis in her left foot and ankle as well as her spine. Denies any rheumatoid arthritis. 2. Height is 5 feet 4 inches, weight is 295, BMI is 50. 3. Vital signs, blood pressure 129/70, pulse is 79, respirations 18, oxygen sat is 100, pain score is 6/10. 4. Fall risk. Denies dizziness, does not need help walking or standing, has not fallen in the last 3 months. The patient is not on any blood thinners, but does take medicine for hypertension. Opioid therapy is greater than 6 weeks; therefore, an opioid signed contract is on the chart. Risk assessment tool is moderate. Functional assessment is 62/70. [address] [address] PAIN MANAGEMENT CONSULTATION Name: HARDEEP SANTIAGO SADAF Room #: REG CLI Opal#: [id number] Admission: 02/11/20 Attend Phys: Hina Wilkinson Discharge: Date of : 70 Report #: [id number] 5. Recreational drug use, she denies. She is not a smoker and does not drink alcohol. According to the prescription monitoring system, the patient is filling all her medications appropriately. Her morphine milliequivalent is 22 MME. She does take alprazolam. The patient reports not at the same time as her oxycodone. She has been stable on both these medicines for quite some time. PHYSICAL EXAMINATION: GENERAL: This is alert and orientated, morbidly obese, 49-year-old female who rating her pain score at 6/10 today. She is alert and orientated and his speech is fluent. HEENT: Normocephalic, atraumatic. Pupils equal, round and reactive to light. She is wearing a mask. EXTREMITIES: No clubbing, no cyanosis, no edema. MUSCULOSKELETAL: She has tenderness in her lumbosacral region of her back, it is greater on the right side than the left, does have pain that radiates down her right leg at times. Pain is also in her left foot. Her lower extremity strength is 5/5, though deconditioned. ASSESSMENT: 1. Failed lumbar spine surgery. 2. Class 3, morbidly obesity. 3. Chronic low back pain. 4. Opioid dependency. 5. Complicated medical management utilizing scheduled medications. We reviewed the fact that opiate medications are being used to provide analgesia adequate to support activities of daily living, not attempting to achieve a specific pain score on the 0-10 Visual Analog Scale. The current opiate medications are providing sufficient analgesia to allow the patient to participate in activities of daily living. The patient is not exhibiting any aberrant behavior suggestive of drug diversion. The patient is not having any adverse reactions to medications. The patient is not suffering from daytime somnolence or mental acuity changes. The patient is managing opiate-induced constipation with appropriate uezn-csb-lmockjv agents and dietary considerations. The patient was counseled on concern for caution with operating a motor vehicle while using opiate medications. PLAN: 1. We discussed treatment options with her today. The patient feels that her pain pills are effective in helping her be as active as she is able due to her weight she is not as active as she would like. She has recently had started medication of Ozempic. She was getting samples from her primary care doctor for this medication due to cost, but since the COVID outbreak, the pharmaceutical reps have not been able to bring any supplies to the doctor's office, so she has [facility] [address] [place] [address] PAIN MANAGEMENT CONSULTATION Name: HARDEEP SANTIAGO Room #: REG [facility].#: [id number] Admission: 02/11/20 Attend Phys: Hina Wilkinson Discharge: Date of : 70 Report #: [id number] not been able to obtain this medication. She feels that if she is able to increase her activity by decreasing her weight, she would then have better pain control as well. Today, we will have Dr. Layo Hou send her oxycodone 5/325, #90 to her pharmacy. 2. We did discuss her depression. The patient has started Wellbutrin. I explained that it does take a while to get therapeutic level into her system before she feels that it is working. She does continue to take her Lexapro. These are prescribed by her primary care doctor. 3. The patient will return in 3 months' time. The patient is seen today in collaboration with Dr. Layo Hou. <ELECTRONICALLY SIGNED> By: Hina Wilkinson 02/11/20 1217 [id number] Hina Wilkinson /nt
== END ==
LOC: PAIN 06:44
PROVIDERS: ATTEND Clinical Nurse Specialist Adult Health
DX: M19.072 Primary osteoarthritis, left ankle and foot (principal); E66.01 Morbid (severe) obesity due to excess calories; Z79.899 Other long term (current) drug therapy; Z79.891 Long term (current) use of opiate analgesic

== ENCOUNTER → 2020-04-14 | Outpatient (CLI) | payer BC ==
[~2020-04-14] VITALS: Ht 162.6 cm; Wt 133.2 kg
[2020-04-14 12:46] VITALS: BP 149/73
--- NOTE | 2020-04-14 12:57 | NUR ---
Pain Clinic Assessment: 1. History of Osteoarthritis: LEFT FOOT LEFT ANKLE SPINE History of Rheumatoid Arthritis: DENIES 2. Height: 5 ft. 4 in. 162.6 cm. Weight: 293.6 lb. oz. 133.176 kg. Patient's BMI: 50.4 3. Vital Signs: BP: 149/73 Pulse: 79 Resp: 16 Temp: 02 Sat: 100 ECG Mon: 4. Pain Intensity: 7 5. Fall Risk: Dizziness: N Needs help standing or walking: N Fallen in the last 3 months: N Fall risk comments: 6. Patient on Blood Thinner: None 7. History of Hypertension: Y 8. Opioid Therapy greater than 6 weeks: Y Opiate Contract Signed: 11/06/17 9. Risk Assessment Tool Provided: MOD-7 10. Functional Assessment Tool: 11. Recreational Drug Use: Never Drug Type: Tobacco Use: Never Smoker Tobacco Type: Amount or Packs/day: How Many Years: Alcohol Use: Yes Frequency: Monthly Quant:
--- NOTE | 2020-04-15 12:31 | HPC ---
[facility] [address] [address] PAIN MANAGEMENT CONSULTATION Name: HARDEEP SANTIAGO Room #: REG [facility]..#: [id number] Admission: 04/14/20 Attend Phys: Hina Wilkinson Discharge: Date of : 70 Report #: [id number] THIS REPORT FOR: cc: Marilyn Lowery MD, Rachel L. MD Hocker,Hina AMANDA ~ CC: Layo Mckenna DO DATE OF SERVICE: 04/14/2020 CHIEF COMPLAINT: Low back pain, right lower extremity pain. HISTORY OF PRESENT ILLNESS: As you know, this is a pleasant 49-year-old female, who returns to the pain clinic today for refill of her opioid medications that she uses to help treat her ongoing low back pain that does radiate into her right lower extremity. She also today is complaining of left foot pain. She reports her pain as a 7/10 on a scale, stating it is a sore, aching pain, worse with movement. She feels that medication as well as heat had been beneficial. She denies any problems with constipation as long as she takes SloMo tea every day and she feels that her medications are beneficial. ALLERGIES: BEES, MORPHINE, CODEINE, LATEX. CURRENT LIST OF MEDICATIONS: Oxycodone 5/325 p.r.n., Wellbutrin, Cozaar, Lexapro, Claritin, meloxicam, Protonix, alprazolam. PQRS: 1. She has a history of osteoarthritis in her left foot. Denies any rheumatoid arthritis. 2. Height is 5 feet 4 inches, weight is 293, BMI is 50. Vital signs 149/73, pulse is 79, respirations 16, oxygen sat is 100, pain score is 7/10. 3. Denies dizziness. Does not need help walking or standing, has not fallen in the last 3 months. 4. The patient is not on any blood thinners, but does take medicine for hypertension. Opioid therapy is greater than 6 weeks; therefore, an opioid signed contract is on the chart. Risk assessment is moderate. Functional assessment 62/70. 5. Recreational drug use, she denies. She is not a smoker and occasionally drinks alcohol. According to the prescription monitoring system, the patient is filling appropriately for her medications, filling them in a timely fashion. Her morphine milliequivalent according to the CDC guidelines is 22 MMEs per day. There is a recent drug screen on her chart. We will recheck that at her next visit. [address] [address] PAIN MANAGEMENT CONSULTATION Name: HARDEEP SANTIAGO Room #: REG [facility]#: [id number] Admission: 04/14/20 Attend Phys: Hina Wilkinson Discharge: Date of : 70 Report #: [id number] PHYSICAL EXAMINATION: GENERAL: This is an alert and orientated, morbidly obese 49-year-old female, who appears her stated age, placing her current pain score at 7/10. She is a good historian. HEENT: Normocephalic, atraumatic. Pupils equal, round, reactive to light. She is wearing a mask. EXTREMITIES: No clubbing, no cyanosis, no edema. MUSCULOSKELETAL: Seated straight leg raising is negative. Modified Gaenslen is positive for axial low back pain. The patient does utilize the arms of the chair to move from sitting to standing position, which causes increase in pain. ASSESSMENT: 1. Failed lumbar spine surgery. 2. Chronic low back pain. 3. Opioid dependency. 4. Class 3 morbid obesity. 5. Complicated medical management, utilizing scheduled medications. We reviewed the fact that opiate medications are being used to provide analgesia adequate to support activities of daily living, not attempting to achieve a specific pain score on the 0-10 Visual Analog Scale. The current opiate medications are providing sufficient analgesia to allow the patient to participate in activities of daily living. The patient is not exhibiting any aberrant behavior suggestive of drug diversion. The patient is not having any adverse reactions to medications. The patient is not suffering from daytime somnolence or mental acuity changes. The patient is managing opiate-induced constipation with appropriate sxvx-wlt-adcpcwb agents and dietary considerations. The patient was counseled on concern for caution with operating a motor vehicle while using opiate medications. A physical exam was performed and the patient's functional status was evaluated. All patients with back pain were advised against the bed rest greater than 4 days and were advised to return to normal activities. Pain score assessment was noted and the treatment plan was reviewed with the patient. All current medications, both prescribed and OTC were reviewed and reconciled on the electronic medical record. Tobacco screening was accomplished and smoking cessation was advised when indicated. BMI was noted and diet/exercise modification was recommended for all patients following outside normal parameters. I reviewed with the patient today their responsibilities to safeguard prescription medications, reviewed their responsibility to utilize medications only as prescribed by the physician. They are to seek and receive pain medications only from 1 physician group ([facility]). They are to use 1 pharmacy and keep the clinic informed if they change pharmacies. Their responsibilities include making followup visits in a timely fashion and to avoid [facility] [address] [place] [address] PAIN MANAGEMENT CONSULTATION Name: HARDEEP SANTIAGO Room #: REG CLI Lianne#: [id number] Admission: 04/14/20 Attend Phys: Hina Wilkinson Discharge: Date of : 70 Report #: [id number] abrupt discontinuation of medication usage. Their responsibilities further include bringing their medications (bottles from the pharmacy with residual pills) to the visit for possible confirmation of pill counts and the patient understands it is their responsibility to submit to random drug screens to ensure both that the medications prescribed are present, and that no other controlled substances are present. All prescriptions provided today were generated electronically. PLAN: 1. We discussed treatment options with the patient today. The patient had been continuing her pain medications and finds them very beneficial. We will have Dr. Layo Mckenna renew these oxycodone 5 mg tablets, #90, for today, 4-week and 8-week supply. He will send these electronically to her pharmacy. 2. The patient has stopped her Ozempic that she had started on to lose weight. Unfortunately, she has not been able to obtain this medication, though she did lose 2 additional pounds since we have last seen her. The patient was happy about that. She is hopeful to restart this medication again and continue on her weight loss plan. 3. We will check a random urine drug screen on the patient on her next visit. 4. The patient will be seen in 3 months. Today's care was collaborated with Dr. Layo Mckenna. <ELECTRONICALLY SIGNED> By: Hina Wilkinson 04/15/20 1231 [id number] Hina Wilkinson /rafael
== END ==
LOC: PAIN 06:58
PROVIDERS: ATTEND Clinical Nurse Specialist Adult Health
DX: M54.5 Low back pain (principal); M79.604 Pain in right leg; G89.29 Other chronic pain; F11.20 Opioid dependence, uncomplicated; E66.01 Morbid (severe) obesity due to excess calories; M96.1 Postlaminectomy syndrome, not elsewhere classified; Z79.899 Other long term (current) drug therapy; Z88.8 Allergy status to other drugs, medicaments and biological substances

== ENCOUNTER → 2020-07-06 | Outpatient (CLI) | payer BC ==
[~2020-07-06] VITALS: Ht 162.6 cm; Wt 141.9 kg
[2020-07-06 10:16] VITALS: BP 145/88
--- NOTE | 2020-07-06 10:28 | NUR ---
Pain Clinic Assessment: 1. History of Osteoarthritis: LEFT FOOT LEFT ANKLE SPINE History of Rheumatoid Arthritis: DENIES 2. Height: 5 ft. 4 in. 162.6 cm. Weight: 312.8 lb. oz. 141.886 kg. Patient's BMI: 53.7 3. Vital Signs: BP: 145/88 Pulse: 83 Resp: 18 Temp: 02 Sat: 99 ECG Mon: 4. Pain Intensity: 6-7 5. Fall Risk: Dizziness: Y Needs help standing or walking: N Fallen in the last 3 months: N Fall risk comments: 6. Patient on Blood Thinner: None 7. History of Hypertension: Y 8. Opioid Therapy greater than 6 weeks: Y Opiate Contract Signed: 11/06/17 9. Risk Assessment Tool Provided: MOD-Gt 10. Functional Assessment Tool: 11. Recreational Drug Use: Never Drug Type: Tobacco Use: Never Smoker Tobacco Type: Amount or Packs/day: How Many Years: Alcohol Use: Yes Frequency: Monthly Quant: 1
--- NOTE | 2020-07-07 09:00 | HPC ---
[facility] [address] [place] [address] PAIN MANAGEMENT CONSULTATION Name: HARDEEP SANTIAGO Room #: REG [facility]..#: [id number] Admission: 07/06/20 Attend Phys: Hina Wilkinson Discharge: Date of : 70 Report #: [id number] THIS REPORT FOR: cc: Marilyn Lowery MD, Rachel L. MD Hocker, Amanda CNS ~ CC: Hina Mckenna DO DATE OF SERVICE: 07/06/2020 CHIEF COMPLAINT: Low back pain, lower extremity pain. HISTORY OF PRESENT ILLNESS: As you know, this is a 49-year-old female who returns to the pain clinic for her ongoing low back pain and right lower extremity pain. Today, she is reporting a pain score of 6-7, which is slightly elevated. She reports it is a dull, throbbing ache, feels like the pain is constant, though she does believe that opioid medications are beneficial in decreasing her pain. She currently is denying constipation, though she has had significant problems with this in the past. The patient is reporting to me that she have multiple health issues since we last saw her in April. She went for a routine checkup with her primary care physician, found out that she was very anemic, the doctor sent her to the Emergency Room where she did stay in the hospital for several days and was transfused with one unit of packed red blood cells. The patient then also reports she had a colonoscopy, which was negative and an ultrasound, which did show a mass in her uterus. She has since had a D and C by Dr. Eden where they removed a biopsy as well as some polyps. All were benign. She continues to feel very tired and occasionally short of breath. She has had several iron infusions since this time, but has not followed up with another hemoglobin level with her primary care. She also reports having Mirena IUD placed, but continues to have spotting every day. ALLERGIES: MORPHINE, CODEINE AND ADHESIVE. CURRENT LIST OF MEDICATIONS: Oxycodone 5 mg p.r.n., Wellbutrin, Lexapro, Cozaar, Temovate, Claritin, Diflucan, meloxicam, Protonix, and Xanax. PQRS: 1. She has osteoarthritic changes in her spine as well as her left foot and ankle. Denies rheumatoid arthritis. 2. Height is 5 feet 4 inches, weight is 312, which is an increase from 293. Her BMI is 53. 3. Vital signs 145/88, pulse is 83, respirations 18, oxygen sat is 99. 4. Pain score is 6-7. [address] [address] PAIN MANAGEMENT CONSULTATION Name: JACKHARDEEP Room #: REG CL M..#: [id number] Admission: 07/06/20 Attend Phys: Hina Wilkinson Discharge: Date of : 70 Report #: [id number] 5. The patient does complain of dizziness, does not need assistance with walking and has not fallen in the last 3 months. 6. The patient is not on any blood thinners, but does take medicine for hypertension. Her opioid therapy is greater than 6 weeks; therefore, an opioid signed contract is on the chart. Risk is moderate. Functional assessment is 62/70. 7. Recreational drug use, she denies. She does not smoke and occasionally drinks alcohol. According to the prescription monitoring system, she is due to fill her medications later next week, filling them in a timely fashion. Her morphine milliequivalent is 22 MME per day. PHYSICAL EXAMINATION: GENERAL: This is alert and orientated, morbidly obese 49-year-old, placing her current pain score at 6-7/10 today. She is a good historian. Her speech is fluent. HEENT: Normocephalic, atraumatic. Pupils equal, round and reactive to light. She is wearing a mask. LUNGS: She has shortness of breath with exertion. EXTREMITIES: No clubbing, no cyanosis, no edema. MUSCULOSKELETAL: Modified Gaenslen's is positive for axial low back pain. She does have an antalgic gait. Seated straight leg raising is negative. Uses the arm rest to raise from the seated position. Has a very large protuberant abdomen. ASSESSMENT: 1. Failed lumbar spine surgery. 2. Class 3 morbidly obesity. 3. Chronic low back pain. 4. Opioid dependency. 5. Complicated medical management utilizing scheduled medications. 6. Anemia with recent blood transfusion. We reviewed the fact that opiate medications are being used to provide analgesia adequate to support activities of daily living, not attempting to achieve a specific pain score on the 0-10 Visual Analog Scale. The current opiate medications are providing sufficient analgesia to allow the patient to participate in activities of daily living. The patient is not exhibiting any aberrant behavior suggestive of drug diversion. The patient is not having any adverse reactions to medications. The patient is not suffering from daytime somnolence or mental acuity changes. The patient is managing opiate-induced constipation with appropriate fuhd-fzc-pjytgcy agents and dietary considerations. The patient was counseled on concern for caution with operating a motor vehicle while using opiate medications. [address] [address] PAIN MANAGEMENT CONSULTATION Name: HARDEEP SANTIAGO Room #: REG CLI Opal#: [id number] Admission: 07/06/20 Attend Phys: Hina AMANDA Minh Discharge: Date of : 70 Report #: [id number] A physical exam was performed and the patient's functional status was evaluated. All patients with back pain were advised against the bed rest greater than 4 days and were advised to return to normal activities. Pain score assessment was noted and the treatment plan was reviewed with the patient. All current medications, both prescribed and OTC were reviewed and reconciled on the electronic medical record. Tobacco screening was accomplished and smoking cessation was advised when indicated. BMI was noted and diet/exercise modification was recommended for all patients following outside normal parameters. I reviewed with the patient today their responsibilities to safeguard prescription medications, reviewed their responsibility to utilize medications only as prescribed by the physician. They are to seek and receive pain medications only from 1 physician group ( [facility]). They are to use 1 pharmacy and keep the clinic informed if they change pharmacies. Their responsibilities include making followup visits in a timely fashion and to avoid abrupt discontinuation of medication usage. Their responsibilities further include bringing their medications (bottles from the pharmacy with residual pills) to the visit for possible confirmation of pill counts and the patient understands it is their responsibility to submit to random drug screens to ensure both that the medications prescribed are present, and that no other controlled substances are present. All prescriptions provided today were generated electronically. PLAN: 1. We discussed treatment options with the patient today. The patient does continue to report ongoing dizziness and foggy feeling in her thought process and does have shortness of breath. I encouraged the patient to follow up with her primary care doctor to have another complete blood count drawn to see what her hemoglobin may be. She reports having no energy and also continuing having spotting on a daily basis. She had her IUD placed. I encouraged her to call her primary as well as her MARKETING TRAFFIC COORDINATOR. 2. We will continue her on her current medications sending 3 months of oxycodone #90 to her local pharmacy to be released on a monthly basis. These will be sent electronically by Dr. Layo Mckenna. 3. I encouraged the patient to stop her meloxicam temporarily. If she is having increasing discomfort in her joints, she may utilize Voltaren gel. This is ofnr-ait-gdtqesl and a good nonsteroidal anti-inflammatories. She did not have an upper GI performed and they found no bleeding in her colonoscopy. Nonetheless, we will take out any medications that may have a risk for increased bleeding tendencies. The patient verbalizes understanding. [address] [address] PAIN MANAGEMENT CONSULTATION Name: HARDEEP SANTIAGO Room #: REG CLI Opal#: [id number] Admission: 07/06/20 Attend Phys: Hina Wilkinson Discharge: Date of : 70 Report #: [id number] 4. The patient will follow up by phone with any further updates on her health and will follow up for medication management in 3 months. <ELECTRONICALLY SIGNED> By: Hina Wilkinson 07/07/20 0900 1315 29 Hina Wilkinson /rafael
== END ==
LOC: PAIN 06:46
PROVIDERS: ATTEND Clinical Nurse Specialist Adult Health
DX: M54.5 Low back pain (principal); M79.604 Pain in right leg; M79.605 Pain in left leg; G89.29 Other chronic pain; E66.01 Morbid (severe) obesity due to excess calories; F11.20 Opioid dependence, uncomplicated; D64.9 Anemia, unspecified; Z88.8 Allergy status to other drugs, medicaments and biological substances; Z79.899 Other long term (current) drug therapy

== ENCOUNTER → 2020-10-13 | Outpatient (CLI) | payer BC ==
[~2020-10-13] VITALS: Ht 162.6 cm; Wt 142.0 kg
[~2020-10-13] MED LIST changes: +WELLBUTRIN SR150 MG PO
[2020-10-13 10:50] VITALS: BP 127/49
[2020-10-13 12:44] VITALS: BP 147/89
--- NOTE | 2020-10-13 12:48 | NUR ---
Pain Clinic Assessment: 1. History of Osteoarthritis: LEFT FOOT LEFT ANKLE SPINE History of Rheumatoid Arthritis: DENIES 2. Height: 5 ft. 4 in. 162.6 cm. Weight: 313.0 lb. oz. 141.976 kg. Patient's BMI: 53.7 3. Vital Signs: BP: 147/89 Pulse: 102 Resp: 18 Temp: 02 Sat: 98 ECG Mon: 4. Pain Intensity: 6-7 5. Fall Risk: Dizziness: N Needs help standing or walking: N Fallen in the last 3 months: N Fall risk comments: 6. Patient on Blood Thinner: None 7. History of Hypertension: Y 8. Opioid Therapy greater than 6 weeks: Y Opiate Contract Signed: 11/06/17 9. Risk Assessment Tool Provided: MOD-Gt 10. Functional Assessment Tool: 11. Recreational Drug Use: Never Drug Type: Tobacco Use: Never Smoker Tobacco Type: Amount or Packs/day: How Many Years: Alcohol Use: Yes Frequency: Quant:
--- NOTE | 2020-10-14 07:11 | HPC ---
[facility] [address] [address] PAIN MANAGEMENT CONSULTATION Name: HARDEEP SANTIAGO Room #: REG [facility]..#: [id number] Admission: 10/13/20 Attend Phys: Hina Wilkinson Discharge: Date of : 70 Report #: [id number] THIS REPORT FOR: cc: Marilyn Lowery MD, Rachel L. MD Hocker,Hina Martínez DATE OF SERVICE: 10/13/2020 CHIEF COMPLAINT: Low back pain, lower extremity pain, paresthesias. HISTORY OF PRESENT ILLNESS: This is a 50-year-old female who returns to the pain clinic today for renewal of her medications. Today, she is reporting she had emergency hernia surgery on 07/[address] Montgomery in [facility]. She did obtain a short prescription from that surgeon after her procedure. While in the hospital, she was worked up for a possible blood clot in her left lower extremity due to increased swelling, but the test did come back negative. Today, the patient reports pain in her mid to low back radiating down her left leg is a dull, throbbing sensation, rating it at a 6-7. She believes her pain medications are beneficial in relieving her pain. The patient reports in the past having a gastric bypass and had lost significant weight. Unfortunately, she had issues with her stomach and unfortunately gained a significant portion back. Dr. Montgomery has been working with her in injecting some saline in her stomach to hopefully allow the patient to start losing weight again. The patient is hopeful to have this worked, so therefore she may have numerous hernias in her abdomen and groin repaired as well as hoping to decrease some of her back pain. ALLERGIES: MORPHINE, CODEINE, ADHESIVE. CURRENT LIST OF MEDICATIONS: Escitalopram, Temovate, Claritin, Diflucan, meloxicam, Protonix, alprazolam, bupropion and oxycodone. PQRS: 1. She has osteoarthritic changes in her foot and ankle as well as her spine. Denies any rheumatoid arthritis. 2. Height is 5 feet 4 inches, weight is 313, BMI is 53. 3. Vital signs 147/89, pulse is 102, respirations 18, oxygen sat is 98%. 4. Pain score is 6-7. 5. Denies dizziness, does not need assistance with ambulation, has not fallen in the last 3 months. 6. The patient is not on blood thinners, but does take medicine for hypertension. 7. Opioid therapy is greater than 6 weeks; therefore, an opioid signed contract is on the chart. Risk assessment is moderate. Functional assessment 60/70. [place] [address] PAIN MANAGEMENT CONSULTATION Name: JACKHARDEEP SADAF Room #: REG [facility] Joseph#: [id number] Admission: 10/13/20 Attend Phys: Hina Wilkinson Discharge: Date of : 70 Report #: [id number] 8. Recreational drug use, she denies. She is not a smoker and occasionally drinks alcohol. According to the prescription monitoring system, the patient is filling appropriately for her medications. There is the fill from her surgeon, but the patient did call to report that prescription. PHYSICAL EXAMINATION: GENERAL: This is alert and orientated, morbidly obese 50-year-old female who appears her stated age, placing her current pain score today at 6-7. She is a good historian. HEENT: Normocephalic, atraumatic. Pupils equal, round and reactive to light. She is wearing a mask. EXTREMITIES: No clubbing, no cyanosis, 1+ edema in her lower extremity. ABDOMEN: Protuberant. Umbilical hernia in her right upper quadrant. MUSCULOSKELETAL: Modified [place] is positive for axial low back pain. She has an antalgic gait. Straight leg raising is negative. She does use the armrest to raise from the seated position. Her lower extremity strength is symmetrical at 5/5. ASSESSMENT: 1. Failed lumbar spine surgery. 2. Class 3 morbidly obesity. 3. Chronic low back pain. 4. Opioid dependency. 5. Complicated medical management utilizing scheduled opioid medications. We reviewed the fact that opiate medications are being used to provide analgesia adequate to support activities of daily living, not attempting to achieve a specific pain score on the 0-10 Visual Analog Scale. The current opiate medications are providing sufficient analgesia to allow the patient to participate in activities of daily living. The patient is not exhibiting any aberrant behavior suggestive of drug diversion. The patient is not having any adverse reactions to medications. The patient is not suffering from daytime somnolence or mental acuity changes. The patient is managing opiate-induced constipation with appropriate ayjz-tmd-yousajk agents and dietary considerations. The patient was counseled on concern for caution with operating a motor vehicle while using opiate medications. A physical exam was performed and the patient's functional status was evaluated. All patients with back pain were advised against the bed rest greater than 4 days and were advised to return to normal activities. Pain score assessment was noted and the treatment plan was reviewed with the patient. All current medications, both prescribed and OTC were reviewed and reconciled on the electronic medical record. Tobacco screening was accomplished and smoking cessation was advised when indicated. BMI was noted and diet/exercise [address] [address] PAIN MANAGEMENT CONSULTATION Name: HARDEEP SANTIAGO Room #: REG [facility]#: [id number] Admission: 10/13/20 Attend Phys: Hina AMANDA Minh Discharge: Date of : 70 Report #: [id number] modification was recommended for all patients following outside normal parameters. I reviewed with the patient today their responsibilities to safeguard prescription medications, reviewed their responsibility to utilize medications only as prescribed by the physician. They are to seek and receive pain medications only from 1 physician group ( [facility]). They are to use 1 pharmacy and keep the clinic informed if they change pharmacies. Their responsibilities include making followup visits in a timely fashion and to avoid abrupt discontinuation of medication usage. Their responsibilities further include bringing their medications (bottles from the pharmacy with residual pills) to the visit for possible confirmation of pill counts and the patient understands it is their responsibility to submit to random drug screens to ensure both that the medications prescribed are present, and that no other controlled substances are present. All prescriptions provided today were generated electronically. PLAN: 1. We discussed treatment options with the patient today. The patient finds her medications beneficial in allowing her to be as active as she would like. We will continue her oxycodone 5 mg tablets sending them electronically by Dr. Layo Mckenna to her pharmacy for release today, 11/10 and 12/08. 2. We did discuss the COVID vaccine. The patient does have numerous comorbidities despite her age of 50. I encouraged her to contact her local pharmacy to see if they will be giving the vaccine soon. 3. We did discuss her recent surgery and upcoming gastric bypass procedure she is having. Hopefully, she will be able to lose weight again, as she had in the past. Time spent with the patient in consultation, reviewing pertinent imaging and reviewing medical records, clinical notes, physician reports, physician examination in correlation of physical findings and medical documentation to determine possible treatments of 22 minutes. Time spent in preparation for appointment reviewing prescription monitoring system reports, reviewing previous records and proposed treatment options, reviewing current medications 8 minutes. Time spent preparing and sending electronic prescriptions in collaboration with physician Dr Layo Mckenna and documentation of visit and plan is 7 minutes. Total time spent 37 minutes. <ELECTRONICALLY SIGNED> By: Hina Wilkinson 10/14/20 0711 [id number] Hina Wilkinson /nt
== END ==
LOC: PAIN 06:53
PROVIDERS: ATTEND Clinical Nurse Specialist Adult Health
DX: M54.5 Low back pain (principal); M79.609 Pain in unspecified limb; R20.2 Paresthesia of skin; G89.29 Other chronic pain; M96.1 Postlaminectomy syndrome, not elsewhere classified; E66.01 Morbid (severe) obesity due to excess calories; F11.20 Opioid dependence, uncomplicated; Z79.899 Other long term (current) drug therapy; Z88.8 Allergy status to other drugs, medicaments and biological substances

== ENCOUNTER → 2021-02-02 | Outpatient (CLI) | payer BC ==
[~2021-02-02] VITALS: Ht 162.6 cm; Wt 147.0 kg
--- NOTE | ~2021-02-02 | HPC ---
[facility] [address] [address] PAIN MANAGEMENT CONSULTATION Name: HARDEEP SANTIAGO Room #: REG [facility].#: [id number] Admission: 02/02/21 Attend Phys: Layo Mckenna DO Discharge: Date of : 70 Report #: [id number] THIS REPORT FOR: cc: Marilyn Lowery MD,Layo Garrido MD, DO ~ DOC #: [id number] cc: MD Layo Ramos DO DATE OF SERVICE: 02/02/2021 REFERRING PHYSICIAN: Marilyn Lowery MD CHIEF COMPLAINT: Low back pain, bilateral lower extremity pain with paresthesias. HISTORY OF PRESENT ILLNESS: As you know, the patient is a 50-year-old female with longstanding history of low back pain, bilateral lower extremity pain. She indicates pain began in 2001 without inciting injury or trauma. She has been experiencing symptoms since that point. As you are aware, the patient has had issues with weight for her entire life. She is now at 324 pounds with BMI of 55.6. She reports over the past couple of months she has been evaluated in Emergency Department, found to have a possible fibroid and has had some chronic anemia and iron deficiency secondary to the bleeding at the fibroid level. She had a colonoscopy, which apparently was clear. She still is dealing with issues from her hernia surgery and is wearing her hernia belt and has had some disability secondary to this issue. She returns today in followup visit requesting refill on medications. She is also having significant questions in regards to weight loss and how she can achieve better and more ideal weight. The patient places her current pain score anywhere from 7-8/10. She is denying side effects with the oxycodone, taking 3 times a day for pain control. ALLERGIES: MORPHINE, CODEINE, ADHESIVE TAPE. CURRENT MEDICATIONS: Escitalopram, Temovate, Claritin, Diflucan, Meloxicam, Protonix, alprazolam, bupropion and oxycodone. SOCIAL HISTORY: The patient denies tobacco, alcohol or IV or illicit drug use. She is working, not receiving Workmen's Compensation, unaccompanied today. IMAGING: No new imaging available. PHYSICAL EXAMINATION: VITAL SIGNS: Blood pressure 147/82, pulse 92, respiratory rate 18 and unlabored. The patient 99% on room air. Height 5 feet 4 inches tall, weight 324 pounds, BMI calculated 55.6. [facility] [address] [place] [address] PAIN MANAGEMENT CONSULTATION Name: HARDEEP SANTIAGO Room #: REG [facility]#: [id number] Admission: 02/02/21 Attend Phys: Layo Mckenna DO Discharge: Date of : 70 Report #: [id number] GENERAL: Well-developed, well-nourished, well-hydrated severely morbidly obese 50-year-old female, appearing stated age. Pain is rated anywhere from 7-8/10. HEENT: Normocephalic, atraumatic. Pupils are round. Speech is fluent. The patient wearing mask in compliance with COVID-19 regulations. EXTREMITIES: Show no clubbing, no cyanosis, no appreciable edema. MUSCULOSKELETAL: Axial back pain is noted with propagating testing including rotation, lateral flexion, forward flexion and extension. Seated straight leg raising is negative. Supine straight leg raising is negative. Gait is antalgic. Muscle bulk and tone appears symmetrical in lower extremities. She is intact to light touch from L1 through S2 dermatomes. ASSESSMENT: 1. Chronic lumbar radiculopathy. 2. Failed lumbar spine surgery. 3. Severely morbidly obese. 4. Opioid dependency. 5. Complicated medication management utilizing scheduled medications. 6. Chronic low back pain. PLAN: 1. The patient returns today in followup visit where we have spent over an hour of time today discussing weight loss and more effective ways of handling her weight. The patient has a significant amount of body shame that I believe needs to be worked on in a more conservative fashion. The patient is very concerned about the opinions of other individuals in regards to her ongoing weight and this severely limits her willingness to participate in activities such as exercise, pool therapies, even just going to and from shopping places. I believe this is one of the major sources of the patient's ongoing weight queen. We discussed with the patient over the past hour how to look at her life in a more positive fashion, how to address individuals who might be performing some type of body shaming and how she can coordinate with individuals of her same height and weight and participate in activities such as pool and aquatherapy that can be done at community centers. We also discussed with the patient dietary changes that might be beneficial. The patient was appreciable for all the discussion we had today and she is going to seek assistance in her body dysmorphic behavior and I encouraged her to do so. I believe also the patient should continue to make the diet changes suggested by her primary care physician that along with potentially being assessed by a dietitian, who can help regulate the patient's caloric intake more effectively. I would recommend that if the patient has not seen a dietitian on a formalized basis, this would be extremely important as I believe it could significantly change the patient's perception of food and what is not appropriate. 2. The patient and I did discuss the possibility of having her undergo new imaging of the lumbar spine. At present, she wishes to address more of the weight issues. If these do not allow for improvement in back pain, she would consider more evaluation with x-rays and MRIs. She wishes to delay that until [facility] [address] [place] [address] PAIN MANAGEMENT CONSULTATION Name: HARDEEP SANTIAGO SADAF Room #: REG [facility].#: [id number] Admission: 02/02/21 Attend Phys: Layo Mckenna DO Discharge: Date of : 70 Report #: [id number] which time she is able to lose some of her weight. She believes as I believe that most of her condition is due to the excessive weight. 3. We reviewed the fact that opiate medications are being used to provide analgesia adequate to support activities of daily living, not attempting to achieve a specific pain score on the 0-10 Visual Analog Scale. The current opiate medications are providing sufficient analgesia to allow the patient to participate in activities of daily living. The patient is not exhibiting any aberrant behavior suggestive of drug diversion. The patient is not having any adverse reactions to medications. The patient is not suffering from daytime somnolence or mental acuity changes. The patient is managing opiate-induced constipation with appropriate kirh-tsl-peblsoo agents and dietary considerations. The patient was counseled on concern for caution with operating a motor vehicle while using opiate medications. A physical exam was performed and the patient's functional status was evaluated. All patients with back pain were advised against the bed rest greater than 4 days and were advised to return to normal activities. Pain score assessment was noted and the treatment plan was reviewed with the patient. All current medications, both prescribed and OTC were reviewed and reconciled on the electronic medical record. Tobacco screening was accomplished and smoking cessation was advised when indicated. BMI was noted and diet/exercise modification was recommended for all patients following outside normal parameters. I reviewed with the patient today their responsibilities to safeguard prescription medications, reviewed their responsibility to utilize medications only as prescribed by the physician. They are to seek and receive pain medications only from 1 physician group ( [facility]). They are to use 1 pharmacy and keep the clinic informed if they change pharmacies. Their responsibilities include making followup visits in a timely fashion and to avoid abrupt discontinuation of medication usage. Their responsibilities further include bringing their medications (bottles from the pharmacy with residual pills) to the visit for possible confirmation of pill counts and the patient understands it is their responsibility to submit to random drug screens to ensure both that the medications prescribed are present, and that no other controlled substances are present. All prescriptions provided today were generated electronically. 4. The patient was provided prescription of oxycodone 5 mg dose 1 tab p.o. t.i.d. I have advised the patient to take the medication only when pain is intolerable, not to rely on the medication prophylactically. We did discuss that this equates to about 22.5 morphine equivalents a day, well below the CDC's recommended no more than 90 morphine equivalents for chronic pain. We will continue the patient on the medication. She was given prescriptions today ____ , 3 months' worth of medication. All prescriptions sent via e-scribe to local pharmacy. [address] [address] PAIN MANAGEMENT CONSULTATION Name: JACKHARDEEP Room #: REG [facility] Opal#: [id number] Admission: 02/02/21 Attend Phys: Layo Mckenna DO Discharge: Date of : 70 Report #: [id number] 5. We will see the patient back in followup visit on an as needed basis for interventional therapies or further discussions with her weight loss. We do encourage the patient to follow up with a dietitian on a more formalized basis to help with adjusting her perception of food. We even discussed online program such as [email or web address].[email or web address], which could be helpful. We will discuss this at followup visit. 6. The patient to return in 3 months for medication management, assuming all is working well with the therapy. Layo Mckenna DO JEJ/KARLA/RYANE By: [id number] Layo Mckenna DO /nt
[2021-02-02 08:27] VITALS: BP 147/82
--- NOTE | 2021-02-02 08:44 | NUR ---
Pain Clinic Assessment: 1. History of Osteoarthritis: LEFT FOOT LEFT ANKLE SPINE History of Rheumatoid Arthritis: DENIES 2. Height: 5 ft. 4 in. 162.6 cm. Weight: 324.0 lb. oz. 146.966 kg. Patient's BMI: 55.6 3. Vital Signs: BP: 147/82 Pulse: 92 Resp: 18 Temp: 02 Sat: 99 ECG Mon: 4. Pain Intensity: 7-8 5. Fall Risk: Dizziness: N Needs help standing or walking: N Fallen in the last 3 months: Y Fall risk comments: 6. Patient on Blood Thinner: None 7. History of Hypertension: Y 8. Opioid Therapy greater than 6 weeks: Y Opiate Contract Signed: 11/06/17 9. Risk Assessment Tool Provided: JANINA-Gt 10. Functional Assessment Tool: 11. Recreational Drug Use: Never Drug Type: Tobacco Use: Never Smoker Tobacco Type: Amount or Packs/day: How Many Years: Alcohol Use: Yes Frequency: Quant:
== END ==
LOC: PAIN 06:54
PROVIDERS: ATTEND Anesthesiology Pain Medicine
DX: M54.16 Radiculopathy, lumbar region (principal); G89.29 Other chronic pain; E66.01 Morbid (severe) obesity due to excess calories; Z79.891 Long term (current) use of opiate analgesic; Z79.899 Other long term (current) drug therapy

== ENCOUNTER → 2021-05-03 | Outpatient (CLI) | payer BC ==
[~2021-05-03] VITALS: Ht 162.6 cm; Wt 150.7 kg
[2021-05-03 08:18] VITALS: BP 137/87
--- NOTE | 2021-05-03 08:32 | NUR ---
Pain Clinic Assessment: 1. History of Osteoarthritis: LEFT FOOT LEFT ANKLE SPINE History of Rheumatoid Arthritis: DENIES 2. Height: 5 ft. 4 in. 162.6 cm. Weight: 332.2 lb. oz. 150.685 kg. Patient's BMI: 57.0 3. Vital Signs: BP: 137/87 Pulse: 92 Resp: 18 Temp: 02 Sat: 99 ECG Mon: 4. Pain Intensity: 6-now 7-8 at work 5. Fall Risk: Dizziness: N Needs help standing or walking: N Fallen in the last 3 months: N Fall risk comments: 6. Patient on Blood Thinner: None 7. History of Hypertension: Y 8. Opioid Therapy greater than 6 weeks: Y Opiate Contract Signed: 11/06/17 9. Risk Assessment Tool Provided: MOD-7 10. Functional Assessment Tool: 11. Recreational Drug Use: Never Drug Type: Tobacco Use: Never Smoker Tobacco Type: Amount or Packs/day: How Many Years: Alcohol Use: Yes Frequency: Quant:
--- NOTE | 2021-05-03 13:09 | HPC ---
[facility] [place] [address] PAIN MANAGEMENT CONSULTATION Name: HARDEEP SANTIAGO Room #: REG [facility].#: [id number] Admission: 05/03/21 Attend Phys: Hina Wilkinson Discharge: Date of : 70 Report #: [id number] THIS REPORT FOR: cc: Marilyn Lowery MD, Rachel L. MD Hocker,Hina AMANDA ~ cc: Layo Mckenna DO DATE OF SERVICE: 05/03/2021 CHIEF COMPLAINT: Low back pain, bilateral lower extremity pain and paresthesias. HISTORY OF PRESENT ILLNESS: This is a pleasant 50-year-old female who returns to the pain clinic today for renewal of her medications. The patient has a longstanding history of low back pain where she has undergone surgery, but continues to have mid lumbar and left leg pain. She describes her pain as a dull aching sensation that at times can be as bad as 7-8 at work. She states that she can only stand for about 10 minutes before her back is aggravated. She believes her heating pad is her "friend" as well as taking her medications. She does feel that sitting down is beneficial. The patient continues to talk about her weight. She has gained 8 pounds since her last visit with the physician here 3 months ago. ALLERGIES: MORPHINE, CODEINE, ADHESIVE AND BEES. MEDICATIONS: Oxycodone 5 mg 3 times a day, bupropion, Lexapro, Claritin, diclofenac, meloxicam, Protonix, and alprazolam. PQRS: 1. She has osteoarthritic changes in her left foot and ankle as well as her spine. Denies any rheumatoid arthritis. 2. Height is 5 feet 4 inches, weight is 332. BMI is 57. 3. Vital signs 137/87, pulse is 92, respirations 18, oxygen sat is 99%. 4. Pain score varies from 6-8 depending on activity. 5. Fall risk, denies dizziness, does use a cane for ambulation, has not fallen in the last 3 months. 6. The patient is not on blood thinners, but does take medicine for hypertension. 7. Opioid therapy is greater than 6 weeks; therefore, an opioid signed contract is on the chart. 8. Risk assessment is moderate. Functional assessment 62/70. 9. Recreational drug use, she denies. She is not a smoker and occasionally drinks alcohol. According to the prescription monitoring system she is filling appropriately in [address] [address] PAIN MANAGEMENT CONSULTATION Name: HARDEEP SANTIAGO Room #: REG [facility].#: [id number] Admission: 05/03/21 Attend Phys: Hina Wilkinson Discharge: Date of : 70 Report #: [id number] a timely fashion. Morphine mEq is 22 MME. There is a urine drug screen on the chart that we will repeat at her next visit. PHYSICAL EXAMINATION: GENERAL: This is a well-developed, well-nourished, morbidly obese 50-year-old female, who appears her stated age, rating her pain score from 6-8. HEENT: Normocephalic, atraumatic. Pupils equal, round and reactive. She is a good historian. She is wearing a mask. EXTREMITIES: No clubbing, no cyanosis, 1+ edema in her left lower extremity. MUSCULOSKELETAL: Axial back pain with lumbar provocation testing. Straight leg raising is negative. Gait is antalgic. She is using a cane. Muscle bulk and tone is symmetrical. IMPRESSION: 1. Chronic lumbar radiculopathy. 2. Failed lumbar spinal surgery. 3. Severe morbidly obesity. 4. Complicated medication management, utilizing scheduled medications. 5. Opioid dependency. 6. Chronic low back pain. We reviewed the fact that opiate medications are being used to provide analgesia adequate to support activities of daily living, not attempting to achieve a specific pain score on the 0-10 Visual Analog Scale. The current opiate medications are providing sufficient analgesia to allow the patient to participate in activities of daily living. The patient is not exhibiting any aberrant behavior suggestive of drug diversion. The patient is not having any adverse reactions to medications. The patient is not suffering from daytime somnolence or mental acuity changes. The patient is managing opiate-induced constipation with appropriate [id number] agents and dietary considerations. The patient was counseled on concern for caution with operating a motor vehicle while using opiate medications. PLAN: 1. We discussed treatment options with the patient today. A great deal of time was spent again discussing her weight and issues. She reports that she is unable to have her lap band filled due to it is "flipping." I encouraged her to discuss this further with her physician, ___. The patient also has had a professor of family medicine she has seen in the past. I encouraged her to call and make an appointment with her. She states that at the beginning of COVID, though quit seeing patients and she was getting samples of Ozempic from them, so unfortunately she has not had that in a year. That medication did help with weight loss. Since the beginning of COVID, she has gained 35 pounds. since we have started seeing her in 2018 her weight is up about 65 pounds. I also encouraged her to discuss options of Vyvanse or phentermine if they are not able to provide Ozempic to her. I also discussed with her seeking professor of family medicine [facility] [address] [place] [address] PAIN MANAGEMENT CONSULTATION Name: HARDEEP SANTIAGO Room #: REG [facility]#: [id number] Admission: 05/03/21 Attend Phys: Hina Wilkinson Discharge: Date of : 70 Report #: [id number] to talk about diet control and also encouraged to exercise as much as possible. The added weight to her abdominal area does increase her back pain and becomes a vicious cycle. The patient was worried about her blood pressure and medications. Today, her blood pressure is adequate and I believe that she would be able to take any of those medications. We discussed that she talk with her professor of family medicine in depth. I encouraged the patient to do this prior to our next appointment with her. 2. We will continue her on her oxycodone 5 mg, #[address] Mckenna for 3 months. He will send these electronically to her local pharmacy. 3. The patient will be seen in 3 months. At that time, we will collect a random drug screen on her. Time spent with the patient in consultation, reviewing pertinent recent studies and clinical notes and physician reports, physical examination and correlation of findings and medical documentation to determine possible treatment options is 15 minutes. Time spent preparing for appointment, reviewing prescription monitoring reports, reviewing previous records and proposed treatment options, reviewing current medications, 5 minutes. Time spent preparing and sending electronic prescriptions with collaborating physician, Dr. Layo Mckenna, documentation of visit and plan of treatment 5 minutes. Total time spent 25 minutes. <ELECTRONICALLY SIGNED> By: Hina Wilkinson 05/03/21 1309 [id number] Hina Wilkinson /nt
== END ==
LOC: PAIN 06:52
PROVIDERS: ATTEND Clinical Nurse Specialist Adult Health
DX: G89.29 Other chronic pain (principal); M54.16 Radiculopathy, lumbar region; M79.661 Pain in right lower leg; M79.662 Pain in left lower leg; E66.01 Morbid (severe) obesity due to excess calories; F11.20 Opioid dependence, uncomplicated

== ENCOUNTER → 2021-08-03 | Outpatient (CLI) | payer BC ==
[~2021-08-03] VITALS: Ht 162.6 cm; Wt 150.5 kg
[2021-08-03 13:04] VITALS: BP 130/68
--- NOTE | 2021-08-03 13:10 | NUR ---
Pain Clinic Assessment: 1. History of Osteoarthritis: LEFT FOOT LEFT ANKLE SPINE History of Rheumatoid Arthritis: DENIES 2. Height: 5 ft. 4 in. 162.6 cm. Weight: 331.8 lb. oz. 150.504 kg. Patient's BMI: 56.9 3. Vital Signs: BP: 130/68 Pulse: 111 Resp: 20 Temp: 02 Sat: 100 ECG Mon: 4. Pain Intensity: 8 5. Fall Risk: Dizziness: N Needs help standing or walking: N Fallen in the last 3 months: N Fall risk comments: 6. Patient on Blood Thinner: None 7. History of Hypertension: Y 8. Opioid Therapy greater than 6 weeks: Y Opiate Contract Signed: 11/06/17 9. Risk Assessment Tool Provided: MOD-7 10. Functional Assessment Tool: 11. Recreational Drug Use: Never Drug Type: Tobacco Use: Never Smoker Tobacco Type: Amount or Packs/day: How Many Years: Alcohol Use: No Frequency: Quant:
== END ==
LOC: PAIN 08:55
PROVIDERS: ATTEND Clinical Nurse Specialist Adult Health
DX: M54.16 Radiculopathy, lumbar region (principal); G89.29 Other chronic pain; M79.661 Pain in right lower leg; M79.662 Pain in left lower leg; E66.01 Morbid (severe) obesity due to excess calories; F11.20 Opioid dependence, uncomplicated; Z88.8 Allergy status to other drugs, medicaments and biological substances; Z79.899 Other long term (current) drug therapy